=== PATIENT | female | born 1965 | race Caucasian/White ===

== ENCOUNTER 2020-10-23 08:06 | Outpatient (REF) | payer OTHER, SELFPAY ==
[2020-10-23 09:11] LABS: MANUAL DIFF FLAG NO
[2020-10-23 09:15] LABS: Basophils Percent Auto 0.5 % (0-2); Eosinophils Absolute Auto 0.2 X10*3/uL (0.0-0.4); Eosinophils Percent Auto 2.7 % (0-4); Hematocrit 40.8 % (37-47); Hemoglobin 13.1 g/dl (12.0-16.0); Imm Gran Abs Auto 0.02 X10*3/uL (0.00-0.03); Imm Gran Pct Auto 0.4 % (0.0-0.4); Lymphocytes Absolute Auto 1.8 X10*3/uL (1.2-4.9); Lymphocytes Percent Auto 31.9 % (20-40); Mean Corpuscular HGB Conc 32.1 g/dl (31.0-35.0); Mean Corpuscular Hemoglobin 28.9 pg (27.0-33.0); Mean Corpuscular Volume 90.1 fL (80-98); Mean Platelet Volume 9.4 fL (9.4-12.3); Monocytes Absolute Auto 0.5 X10*3/uL (0.1-1.2); Neutrophils Absolute Auto 3.2 X10*3/uL (2.0-8.3); Neutrophils Percent Auto 56.5 % (45-73); Platelet Count 261 X10*3/uL (160-400); Red Blood Count 4.53 X10*6/uL (4.20-5.50); Red Cell Distribution Width 12.6 % (11.0-16.0); White Blood Count 5.6 X10*3/uL (4.8-10.8)
[2020-10-23 09:41] LABS: Alanine Aminotransferase 38 U/L (0-31); Albumin Level 4.2 g/dL (3.5-5.0); Alkaline Phosphatase 71 U/L (39-117); Anion Gap 10 (12-20); Aspartate Amino Transferase 23 U/L (5-31); Bilirubin Direct 0.2 mg/dL (0.0-0.5); Bilirubin Total 0.7 mg/dL (0.0-1.0); Blood Urea Nitrogen 16 mg/dL (9-16); Calcium 9.1 mg/dL (8.4-10.2); Carbon Dioxide 29 mmol/L (22-29); Chloride 105 mmol/L (96-108); Cholesterol 223 mg/dL; Estimated Glomerular Filt Rate > 60; Glucose Fasting 106 mg/dL (60-99); HDL Cholesterol 58 mg/dL; LDL Cholesterol Calculated 120 mg/dl; Potassium 3.9 mmol/l (3.3-5.1); Sodium 140 mmol/L (135-145); Total Protein 6.9 g/dL (6.5-8.0); Triglycerides 225 mg/dL
[2020-10-23 10:07] LABS: Thyroid Stimulating Hormone 1.91 uIU/mL (0.32-4.0); Vitamin D 25-OH Total 34.3 ng/mL (>30)
[2020-10-23 10:37] LABS: T4 Thyroxine 5.3 ug/dL (4.5-12.0)
[2020-10-23 10:54] LABS: Vitamin B12 324 pg/mL (200-900)
== END 2020-10-23 08:07 | disposition home or self-care (01) ==
LOC: HO.LAB 08:06
PROVIDERS: PCP Internal Medicine; Visit Provider Internal Medicine
DX: E78.00 Pure hypercholesterolemia, unspecified (principal); R73.01 Impaired fasting glucose
CPT/HCPCS: 36415; 80053; 80061; 80076; 82248; 82306; 82607; 82746; 84436; 84443; 85025

== ENCOUNTER 2020-11-02 07:58 | Outpatient (REF) | payer OTHER, SELFPAY ==
--- NOTE | 2020-11-02 08:01 | MM_ITS ---
EXAMINATION: MM SCREENING DIGITAL BREAST TOMOSYNTHESIS, BILATERAL CLINICAL INFORMATION: Screening. Asymptomatic. The lifetime risk of breast cancer based on the Tyrer-Cuzick Model is 10%. COMPARISON: Mammography: 07/05/2019, 06/27/2018, 04/24/2017 TECHNIQUE: Digital breast tomosynthesis is performed in both the craniocaudal and mediolateral oblique views along with computer-aided detection (CAD). Synthesized 2D images are generated from the tomosynthesis. Additional right CC view is provided. FINDINGS: There are scattered areas of fibroglandular density (ACR BI-RADS breast composition Category b). There are no significant masses, abnormal calcifications, or other abnormalities. There is a biopsy clip marker left breast 12:30 o'clock position mid depth with some scattered stable round calcifications in this vicinity. No significant changes. MM/MM tomosynthesis screening BI IMPRESSION: No significant changes from prior studies. ASSESSMENT: BI-RADS 2: Benign RECOMMENDATION: Routine annual mammography screening. This patient's information was entered into a reminder system with a target due date for their next mammogram.
== END 2020-11-02 07:59 | disposition home or self-care (01) ==
LOC: HO.MAMMO 07:58
PROVIDERS: PCP Internal Medicine; Visit Provider Internal Medicine
DX: Z12.31 Encounter for screening mammogram for malignant neoplasm of breast (principal)
CPT/HCPCS: 77063; 77067

== ENCOUNTER → 2020-11-14 11:01 | Outpatient (REF) | payer OTHER, SELFPAY | LOC: HO.SL 11:01 | PROVIDERS: Visit Provider Otolaryngology | DX: R06.83 Snoring (principal); G47.10 Hypersomnia, unspecified | CPT/HCPCS: 95806 ==

== ENCOUNTER → 2020-12-04 14:50 | Outpatient (BNVA) | payer OTHER, SELFPAY | PROVIDERS: PCP Internal Medicine; Visit Provider Advanced Practice Midwife ==

== ENCOUNTER 2021-12-06 08:57 | Outpatient (REF) | payer OTHER, SELFPAY ==
--- NOTE | ~2021-12-06 | MM_ITS ---
EXAMINATION: MM SCREENING DIGITAL BREAST TOMOSYNTHESIS, BILATERAL CLINICAL INFORMATION: Screening. Asymptomatic. The lifetime risk of breast cancer based on the Tyrer-Cuzick Model is 11%. COMPARISON: Mammography: 11/02/2020, 07/05/2019, 06/27/2018 TECHNIQUE: Digital breast tomosynthesis is performed in both the craniocaudal and mediolateral oblique views along with computer-aided detection (CAD). Synthesized 2D images are generated from the tomosynthesis. Additional right CC view is provided. FINDINGS: There are scattered areas of fibroglandular density (ACR BI-RADS breast composition Category b). There are no significant masses, abnormal calcifications, or other abnormalities. There is biopsy clip marker again noted left breast mid 12:30 o'clock position. Parenchymal pattern is similar to prior studies. MM/MM tomosynthesis screening BI IMPRESSION: No mammographic evidence of malignancy. ASSESSMENT: BI-RADS 1: Negative RECOMMENDATION: Routine annual mammography screening. This patient's information was entered into a reminder system with a target due date for their next mammogram.
== END 2021-12-06 08:58 | disposition home or self-care (01) ==
LOC: HO.MAMMO 08:57
PROVIDERS: PCP Internal Medicine; Visit Provider Internal Medicine
DX: Z12.31 Encounter for screening mammogram for malignant neoplasm of breast (principal)
CPT/HCPCS: 77063; 77067

== ENCOUNTER → 2021-12-25 08:30 | Outpatient (BNVA) | payer OTHER, SELFPAY | PROVIDERS: PCP Internal Medicine; Visit Provider Advanced Practice Midwife ==

== ENCOUNTER 2022-01-20 07:15 | Outpatient (REF) | payer OTHER, SELFPAY ==
[2022-01-20 07:28] LABS: MANUAL DIFF FLAG NO
[2022-01-20 08:01] LABS: Basophils Percent Auto 0.5 % (0-2); Eosinophils Absolute Auto 0.2 X10*3/uL (0.0-0.4); Eosinophils Percent Auto 2.8 % (0-4); Hematocrit 41.6 % (37.0-47.0); Hemoglobin 13.5 g/dl (12.0-16.0); Imm Gran Abs Auto 0.01 X10*3/uL (0.00-0.03); Imm Gran Pct Auto 0.2 % (0.0-0.4); Lymphocytes Absolute Auto 2.3 X10*3/uL (1.2-4.9); Lymphocytes Percent Auto 38.4 % (20-40); Mean Corpuscular HGB Conc 32.5 g/dl (31.0-35.0); Mean Corpuscular Hemoglobin 29.1 pg (27.0-33.0); Mean Corpuscular Volume 89.7 fL (80.0-98.0); Mean Platelet Volume 9.6 fL (9.4-12.3); Monocytes Absolute Auto 0.5 X10*3/uL (0.1-1.2); Monocytes Percent Auto 8.9 % (2-11); Neutrophils Percent Auto 49.2 % (45-73); Platelet Count 244 X10*3/uL (160-400); Red Blood Count 4.64 X10*6/uL (4.20-5.50); Red Cell Distribution Width 13.2 % (11.0-16.0); White Blood Count 6.1 X10*3/uL (4.8-10.8)
[2022-01-20 08:27] LABS: Alanine Aminotransferase 33 U/L (0-31); Albumin Level 4.3 g/dL (3.5-5.0); Alkaline Phosphatase 74 U/L (39-117); Anion Gap 14 (12-20); Aspartate Amino Transferase 21 U/L (5-31); Bilirubin Total 0.4 mg/dL (0.0-1.0); Blood Urea Nitrogen 19 mg/dL (9-16); Calcium 9.8 mg/dL (8.4-10.2); Carbon Dioxide 27 mmol/L (22-29); Chloride 107 mmol/L (96-108); Cholesterol 190 mg/dL; Estimated Glomerular Filt Rate > 60; Glucose Random 101 mg/dL (60-115); HDL Cholesterol 53 mg/dL; LDL Cholesterol Calculated 112 mg/dl; Potassium 4.4 mmol/L (3.3-5.1); Sodium 144 mmol/L (135-145); Triglycerides 126 mg/dL
[2022-01-20 08:38] LABS: Estimated Average Glucose 105 mg/dL; Hemoglobin A1c % 5.3 %
[2022-01-20 09:08] LABS: Free T4 (Free Thyroxine) 0.85 ng/dL (0.71-1.85); Thyroid Stimulating Hormone 2.21 uIU/mL (0.32-4.0)
[2022-01-20 09:22] LABS: Folate 7.9 ng/mL (> or = 4.0); Vitamin B12 345 pg/mL (200-900)
[2022-01-22 14:28] LABS: Vitamin D 25-OH Total 32.3 ng/mL (>30)
== END 2022-01-20 07:16 | disposition home or self-care (01) ==
LOC: HO.LAB 07:15
PROVIDERS: PCP Internal Medicine; Visit Provider Internal Medicine
DX: R73.02 Impaired glucose tolerance (oral) (principal); E78.00 Pure hypercholesterolemia, unspecified
CPT/HCPCS: 36415; 80053; 80061; 82306; 82607; 82746; 83036; 84439; 84443; 85025

== ENCOUNTER → 2022-02-25 13:56 | Outpatient (BNVA) | payer OTHER, SELFPAY | PROVIDERS: PCP Internal Medicine; Referring Provider Internal Medicine; Visit Provider Physician Assistant | DX: Z13.89 Encounter for screening for other disorder (principal) ==

== ENCOUNTER 2022-12-12 09:00 | Outpatient (REF) | payer OTHER, SELFPAY ==
--- NOTE | ~2022-12-12 | MM_ITS ---
EXAMINATION: MM SCREENING DIGITAL BREAST TOMOSYNTHESIS, BILATERAL CLINICAL INFORMATION: Screening. Asymptomatic. The lifetime risk of breast cancer based on the Tyrer-Cuzick Model is 9%. COMPARISON: Mammography: 12/06/2021, 11/02/2020, 07/05/2019, 06/27/2018 TECHNIQUE: Digital breast tomosynthesis is performed in both the craniocaudal and mediolateral oblique views along with computer-aided detection (CAD). Synthesized 2D images are generated from the tomosynthesis. FINDINGS: There are scattered areas of fibroglandular density (ACR BI-RADS breast composition Category b). There are no significant masses, abnormal calcifications, or other abnormalities. Parenchymal pattern is similar to prior studies. Again, there is biopsy clip marker 12:30 left breast. Right breast has circumscribed nodule likely intramammary node under 1 cm anterior upper outer quadrant similar to prior exams. No architectural abnormality. The axilla and skin contours are unremarkable. No significant changes. MM/MM tomosynthesis screening BI IMPRESSION: No mammographic evidence of malignancy. ASSESSMENT: BI-RADS 2: Benign RECOMMENDATION: Routine annual mammography screening. This patient's information was entered into a reminder system with a target due date for their next mammogram.
== END 2022-12-12 09:01 | disposition home or self-care (01) ==
LOC: HO.MAMMO 09:00
PROVIDERS: PCP Internal Medicine; Visit Provider Internal Medicine
DX: Z12.31 Encounter for screening mammogram for malignant neoplasm of breast (principal)
CPT/HCPCS: 77063; 77067

== ENCOUNTER 2023-01-25 07:09 | Outpatient (REF) | payer OTHER, SELFPAY ==
[2023-01-25 07:23] LABS: MANUAL DIFF FLAG NO
[2023-01-25 08:00] LABS: Appearance Urine Clear; Color Urine Yellow; Glucose Urine UA Negative (Negative); Leukocyte Esterase Urine Negative (Negative); Nitrite Urine Negative (Negative); Specific Gravity - Urine 1.025 (1.005-1.025); Urine Blood Negative (Negative); Urine Ketones Negative (Negative); Urine Protein Negative (Neg-Trace)
[2023-01-25 08:03] LABS: Basophils Absolute Auto 0.1 X10*3/uL (0.0-0.2); Basophils Percent Auto 0.8 % (0-2); Eosinophils Absolute Auto 0.2 X10*3/uL (0.0-0.4); Eosinophils Percent Auto 2.4 % (0-4); Hematocrit 42.3 % (37.0-47.0); Hemoglobin 13.7 g/dl (12.0-16.0); Imm Gran Abs Auto 0.02 X10*3/uL (0.00-0.03); Imm Gran Pct Auto 0.3 % (0.0-0.4); Lymphocytes Absolute Auto 3.2 X10*3/uL (1.2-4.9); Lymphocytes Percent Auto 42.6 % (20-40); Mean Corpuscular HGB Conc 32.4 g/dl (31.0-35.0); Mean Corpuscular Hemoglobin 29.3 pg (27.0-33.0); Mean Corpuscular Volume 90.4 fL (80.0-98.0); Mean Platelet Volume 9.6 fL (9.4-12.3); Monocytes Absolute Auto 0.6 X10*3/uL (0.1-1.2); Monocytes Percent Auto 7.4 % (2-11); Neutrophils Absolute Auto 3.5 x10*3/uL (2.0-8.3); Neutrophils Percent Auto 46.5 % (45-73); Platelet Count 264 X10*3/uL (160-400); Red Blood Count 4.68 X10*6/uL (4.20-5.50); Red Cell Distribution Width 12.5 % (11.0-16.0); White Blood Count 7.4 X10*3/uL (4.8-10.8)
[2023-01-25 08:04] LABS: Bacteria Urine None Seen (None Seen); Hyaline Casts Urine 0-2 /LPF (0-2); RBC Urine 0-2 /HPF (0-2); Squamous Epithelial Cell Urine 0-2 /HPF (0-2); WBC Urine 0-5 /HPF (0-5)
[2023-01-25 08:13] LABS: Estimated Average Glucose 105 mg/dL; Hemoglobin A1c % 5.3 %
[2023-01-25 08:46] LABS: Alanine Aminotransferase 28 U/L (0-31); Albumin Level 4.2 g/dL (3.5-5.0); Alkaline Phosphatase 89 U/L (39-117); Anion Gap 11 (12-20); Aspartate Amino Transferase 17 U/L (5-31); Bilirubin Total 0.5 mg/dL (0.0-1.0); Blood Urea Nitrogen 20 mg/dL (9-16); Calcium 9.3 mg/dL (8.4-10.2); Carbon Dioxide 28 mmol/L (22-29); Chloride 106 mmol/L (96-108); Cholesterol 157 mg/dL; Estimated Glomerular Filt Rate > 60; Glucose Random 97 mg/dL (60-115); HDL Cholesterol 53 mg/dL; LDL Cholesterol Calculated 77 mg/dl; Potassium 4.3 mmol/L (3.3-5.1); Sodium 141 mmol/L (135-145); Total Protein 6.7 g/dL (6.5-8.0); Triglycerides 136 mg/dL
[2023-01-25 09:07] LABS: Folate 5.5 ng/mL (> or = 4.0); Free T4 (Free Thyroxine) 0.83 ng/dL (0.71-1.85); Thyroid Stimulating Hormone 2.44 uIU/mL (0.32-4.0); Vitamin B12 392 pg/mL (200-900); Vitamin D 25-OH Total 40.1 ng/mL (>30)
== END 2023-01-25 07:10 | disposition home or self-care (01) ==
LOC: HO.LAB 07:09
PROVIDERS: PCP Internal Medicine; Visit Provider Internal Medicine
DX: E78.00 Pure hypercholesterolemia, unspecified (principal); R73.02 Impaired glucose tolerance (oral); E55.9 Vitamin D deficiency, unspecified
CPT/HCPCS: 36415; 80053; 80061; 81001; 82306; 82607; 82746; 83036; 84439; 84443; 85025

== ENCOUNTER 2023-03-09 15:11 | Outpatient (REF) | payer OTHER, SELFPAY ==
[2023-03-12 04:18] LABS: HPV mRNA E6/E7 rflx Not Detected (Not Detected)
== END 2023-03-09 15:12 | disposition home or self-care (01) ==
LOC: HO.LNP 15:11
PROVIDERS: PCP Internal Medicine; Visit Provider Advanced Practice Midwife
DX: Z01.419 Encounter for gynecological examination (general) (routine) without abnormal findings (principal); Z11.51 Encounter for screening for human papillomavirus (HPV)
CPT/HCPCS: 87624; 88142

== ENCOUNTER → 2023-03-11 14:46 | Outpatient (BNVA) | payer OTHER, SELFPAY | PROVIDERS: PCP Internal Medicine; Visit Provider Physician Assistant ==

== ENCOUNTER 2023-04-22 06:24 | Day surgery (SDC) | payer OTHER, SELFPAY ==
--- NOTE | 2023-04-21 10:40 | P.CONAN_ITS ---
HPI - Anesthesia Eval Consult details Narrative: 57yo F for Colonoscopy PMF Active Problems Active Problems: All Active Problems (Updated 03/16/23 @ 12:21 by Leonor Fofana CNM) Family history of colon cancer in father (Acute) Colon cancer screening (Acute) Fecal urgency (Acute) Impacted cerumen of right ear (Acute) Recurrent major depression (Acute) Diarrhea (Acute) Mild obstructive sleep apnea (Acute) Encounter for annual routine gynecological examination (Acute) Rash (Acute) Low back pain radiating to lower extremity (Acute) Internal nasal lesion (Acute) Obesity (BMI 30-39.9) (Acute) Snoring (Acute) Cervical cancer screening (Acute) Impaired glucose tolerance (Acute) Annual physical exam (Acute) Hypercholesterolemia (Acute) Anxiety and depression (Acute) Past Medical History Medical History Abnormal Pap smear of cervix Anxiety and depression Hypercholesterolemia Liver cyst Migraine Obesity (BMI 30-39.9) Family History Family History Father Colon cancer Mother Hypertension Dementia Maternal Aunt Myocardial infarction Paternal Uncle Myocardial infarction Surgical History Surgical History History of appendectomy History of D&C History of wisdom tooth extraction Hx of colonoscopy Malleolar fracture Social History Social History Housing: House Alcohol intake: current Alcohol intake frequency: a few times a week Patient Tobacco Use Status: Former Tobacco user Quit Date: 1986 Tobacco use type: Cigarette Years Smoked: 1985 stopped e-Cigarette/Vaping Use: Never Used Second Hand Smoke Exposure: No Use of substances other than those prescribed or required for medical reasons: No Are you DNR?: No Advance Directives: No Advance Directives Information Provided: Yes service: No Current occupational status: employed 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 Sexual orientation: Straight/Heterosexual Gender identity: Female Cognitive needs: No Hearing needs: No Vision needs: No Meds Allergies Allergy/AdvReac Type Severity Reaction Status Date / Time atorvastatin [From Lipitor] Allergy Unknown Unknown Verified 04/22/23 06:35 simvastatin [SIMVASTATIN] Allergy Unknown RASH Verified 04/22/23 06:35 Home Medications Medication Instructions Recorded Confirmed Last Taken Type calcium carbonate 600 mg-vitamin 1 tab PO DAILY 10/28/20 04/20/23 Unknown History D3 5 mcg (200 unit) tablet (Calcium 600 + D(3)) Exam Exam Date and Time: April 21, 2023 1040 Pertinent Lab Results Pertinent Lab Results: Laboratory Tests 01/25/23 01/25/23 07:22 07:22 WBC 7.4 Hgb 13.7 Hct 42.3 Plt Count 264 Sodium 141 Potassium 4.3 Chloride 106 Carbon Dioxide 28 BUN 20 H Creatinine 0.82 Assessment and Plan Assessment Anesthesia Assessment: Chart Reviewed
--- NOTE | 2023-04-22 06:09 | MHC.SHP ---
Pre-Procedural Eval Section A Date of Service: 04/22/23 Section B Chief Complaint: screening,hx of malignant neoplasm Details of Present Illness: father CRC Relevant Family History (Specify if Yes): Yes Relevant Social History: None Present Medications: see Short Stay Collaborative assessment Medical History: Significant History (Abnormal Pap smear of cervix Anxiety and depression Hypercholesterolemia Liver cyst Migraine Obesity (BMI 30-39.9)) History of Previous Operations: Relevant previous surgery/procedure and date(s) (History of appendectomy History of D&C History of wisdom tooth extraction Malleolar fracture) Allergies: Allergies Allergy/AdvReac Type Severity Reaction Status Date / Time atorvastatin [From Lipitor] Allergy Unknown Unknown Verified 03/11/23 14:47 simvastatin [SIMVASTATIN] Allergy Unknown RASH Verified 03/11/23 14:47 Review of Systems Sugical H&P ROS: Negative: Constitution, Cardiovascular, Respiratory, Neurological, Psychiatric, Hem-Onc, Allergic/Immunologic, Gastrointestinal, Genitourinary, Musculoskeletal, Integumentary, Endocrine and Eyes/Ears/Nose/Throat Exam Surgical H&P Exam: Normal: HEENT, Normal: Heart, Normal: Lungs, Normal: Extremities, Normal: Abdomen, Normal: Skin and Normal: Neurological Plan Diagnosis/Plan: Unchanged I have reviewed the history and physical and performed a pertinent physical examination on my patient. No changes have occurred unless specified. Time Spent With Patient Time: Total time managing care of this patient today ____ minutes.
[2023-04-22 06:37] VITALS: BMI 28.7
[2023-04-22 06:43] VITALS: BP 124/77; PULSE 51; RESP 15; TEMP 36.4; O2SAT 95
[2023-04-22] MEDS: Lactated Ringers 1,000 ML 100 ML IVCONT (06:56)
--- NOTE | 2023-04-22 08:03 | HO.ANESPROP2 ---
[facility] Active Problems Active Problems: All Active Problems (Updated 03/16/23 @ 12:21 by Leonor Fofana CNM) Annual physical exam (Acute) Impaired glucose tolerance (Acute) Cervical cancer screening (Acute) Snoring (Acute) Internal nasal lesion (Acute) Low back pain radiating to lower extremity (Acute) Rash (Acute) Encounter for annual routine gynecological examination (Acute) Mild obstructive sleep apnea (Acute) Diarrhea (Acute) Recurrent major depression (Acute) Impacted cerumen of right ear (Acute) Fecal urgency (Acute) Colon cancer screening (Acute) Family history of colon cancer in father (Acute) Obesity (BMI 30-39.9) (Acute) Hypercholesterolemia (Acute) Anxiety and depression (Acute) Past Medical History Medical History Abnormal Pap smear of cervix Anxiety and depression Hypercholesterolemia Liver cyst Migraine Obesity (BMI 30-39.9) Family History Family History Father Colon cancer Mother Hypertension Dementia Maternal Aunt Myocardial infarction Paternal Uncle Myocardial infarction Family history of problems with anesthesia: No Surgical History Surgical History History of appendectomy History of D&C History of wisdom tooth extraction Hx of colonoscopy Malleolar fracture History of Problems with Anesthesia: No Social History Social History Housing: House Alcohol intake: current Alcohol intake frequency: a few times a week Patient Tobacco Use Status: Former Tobacco user Quit Date: 1986 Tobacco use type: Cigarette Years Smoked: 1985 stopped e-Cigarette/Vaping Use: Never Used Second Hand Smoke Exposure: No Use of substances other than those prescribed or required for medical reasons: No Are you DNR?: No Advance Directives: No Advance Directives Information Provided: Yes service: No Current occupational status: employed 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 Sexual orientation: Straight/Heterosexual Gender identity: Female Cognitive needs: No Hearing needs: No Vision needs: No Meds Allergies Allergy/AdvReac Type Severity Reaction Status Date / Time atorvastatin [From Lipitor] Allergy Unknown Unknown Verified 04/22/23 06:35 simvastatin [SIMVASTATIN] Allergy Unknown RASH Verified 04/22/23 06:35 Active Medications: Current Medications Lactated Ringer's (Lr) 1,000 mls @ 100 mls/hr IVCONT .Q10H AMARIS Last Admin: 04/22/23 06:56 Dose: 100 mls/hr Home Medications Medication Instructions Recorded Confirmed Last Taken Type calcium carbonate 600 mg-vitamin 1 tab PO DAILY 10/28/20 04/20/23 Unknown History D3 5 mcg (200 unit) tablet (Calcium 600 + D(3)) Exam Exam Date and Time: April 22, 2023 0803 Height,Weight and Vital Signs: Height 5 ft 6 in Weight 80.739 kg Last Vital Signs Temp 97.6 F 04/22/23 06:43 Pulse 51 04/22/23 06:43 Resp 15 04/22/23 06:43 BP 124/77 04/22/23 06:43 Pulse Ox 95 04/22/23 06:43 O2 Del Method Room Air 04/22/23 06:43 Airway Mallampati Class: II TM Dist: >3cm Neck ROM: Full Heart: RRR Lungs: CTA Assessment and Plan Final Anesthetic Review Family History of Problems with Anesthesia: No History of Problems with Anesthesia: No NPO: Yes ASA Class: II Final Preanesthetic Review: Consent Obtained/Reviewed Patient Risk: Low Procedure Risk: Low Anesthetic Plan Anesthetic Plan: MAC: Disposition: Standard PACU
--- NOTE | 2023-04-22 08:16 | W.PM.OPN ---
Operative Note Operative Note Date of Service: 04/22/23 Narrative: Operative Information Procedure Description: Colonoscopy Indication: screening, FH of cRC Anesthesia: MAC COLONOSCOPY Instrument: Olympus variable stiffness pediatric scope 190L Colonoscopy Monitoring: Vital signs and clinical assessment, continuous EKG monitoring, Pulse oximetry, Carbon Dioxide monitoring and blood pressure monitoring were done throughout the procedure. Colon withdrawal time was 10 minutes. Procedure: The patient was placed in the left lateral decubitis position and pre-procedure medications were administered. After a digital rectal examination of the ano-rectum, the video colonoscope was inserted into the rectum and advanced through the colon to the cecum/TI. The colonoscope was slowly withdrawn in a retrograde panoramic fashion and the colon mucosa was carefully examined including a retroflexed view of the rectum. Findings and interventions are described below. Procedure Difficulty: moderate, pressure applied due to tortuous colon Findings: Terminal Ileum-not intubated Cecum:normal Ascending Colon: normal Transverse Colon -normal Descending Colon:normal Sigmoid Colon: mild diverticulosis Rectum: Retroflexion with small internal hemorrhoids, grade I Anorectum - normal Colon preparation: [place] Bowel Preparation Scale Right colon; 2 Transverse colon: 3 Left colon; 3 (0 = Unprepared colon segment with mucosa not seen due to solid stool that cannot be cleared. 1 = Portion of mucosa of the colon segment seen, but other areas of the colon segment not well seen due to staining, residual stool and/or opaque liquid. 2 = Minor amount of residual staining, small fragments of stool and/or opaque liquid, but mucosa of colon segment seen well. 3 = Entire mucosa of colon segment seen well with no residual staining, small fragments of stool or opaque liquid) Impression and Post Procedure Diagnosis: internal hemorrhoids diverticulosis Plan: High fiber diet leaflet Avoid straining at stool, epsom salts and sitz bath, anusol supps or cream Repeat Colonoscopy in 5 years or earlier if clinically indicated Above findings were reviewed with the patient and relevant handouts were provided if indicated.
[2023-04-22 08:22] VITALS: BP 103/58; PULSE 63; RESP 16; TEMP 36.6; O2SAT 94
[2023-04-22 08:37] VITALS: BP 101/60; PULSE 62; RESP 16; O2SAT 96
--- NOTE | 2023-04-22 08:49 | HO.POSTANES ---
Post Anesthesia Evaluation Post Anesthesia Evaluation Date of Service: 04/22/23 Vital Signs: Vital Signs Temp Pulse Resp BP Pulse Ox O2 Del Method 04/22/23 08:37 62 16 101/60 96 Room Air 04/22/23 08:22 98 F 63 16 103/58 L 94 Room Air 04/22/23 06:43 97.6 F 51 15 124/77 95 Room Air Anesthesia: Monitored Mental Status: Awake Pain Control: Satisfactory Nausea/Vomiting: None Hydration: Adequate Anesthesia-Related Issues: No Anes. Related Issues
[2023-04-22 08:52] VITALS: BP 113/68; PULSE 52; RESP 16; TEMP 36.8; O2SAT 98
== END 2023-04-22 09:33 | disposition home or self-care (01) ==
PROVIDERS: PCP Internal Medicine; Visit Provider Internal Medicine Gastroenterology
PROC: 0DJD8ZZ Inspection of Lower Intestinal Tract, Via Natural or Artificial Opening Endoscopic (ICD-10-PCS; CPT 45378; principal; 2023-04-22 07:30)
DX: Z12.11 Encounter for screening for malignant neoplasm of colon (principal); Z80.0 Family history of malignant neoplasm of digestive organs; K57.30 Diverticulosis of large intestine without perforation or abscess without bleeding; K64.0 First degree hemorrhoids; K76.89 Other specified diseases of liver; E78.00 Pure hypercholesterolemia, unspecified; F41.8 Other specified anxiety disorders; G43.909 Migraine, unspecified, not intractable, without status migrainosus; E66.9 Obesity, unspecified; Z79.899 Other long term (current) drug therapy; Z88.8 Allergy status to other drugs, medicaments and biological substances; Z87.891 Personal history of nicotine dependence
CPT/HCPCS: 45378

== ENCOUNTER 2023-05-13 07:58 | Outpatient (AMB) | payer OTHER, SELFPAY ==
--- NOTE | 2023-05-13 08:14 | A.OFFVIS_ITS ---
Intake Vital Signs 05/13/23 08:15 Height 5 ft 6 in Weight 182 lb 1.629 oz BMI 29.4 BP 128/85 Blood Pressure Location Lt brachial Position Sitting Pulse 58 Intake Visit Reasons: S/P [place]: Dr. 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 Accompanied by: Self / Same As Patient Allergies atorvastatin [From Lipitor] Allergy (Unknown, Verified 05/13/23 08:14) Unknown simvastatin [SIMVASTATIN] Allergy (Unknown, Verified 05/13/23 08:14) RASH HPI HPI Comments History of Present Illness Details A 57 y/o female follows after colonoscopy-for family history colon cancer- father in his 40s She tolerated well- she was very happy- with her process No /GI complaints- Vacation next week-excited- [facility] Medical History Abnormal Pap smear of cervix Anxiety and depression Hypercholesterolemia Liver cyst Migraine Obesity (BMI 30-39.9) Surgical History History of appendectomy History of D&C History of wisdom tooth extraction Hx of colonoscopy Malleolar fracture Family History Father Colon cancer Mother Hypertension Dementia Maternal Aunt Myocardial infarction Paternal Uncle Myocardial infarction Social History Housing: House Alcohol intake: current Alcohol intake frequency: a few times a week Patient Tobacco Use Status: Former Tobacco user Quit Date: 1986 Tobacco use type: Cigarette Years Smoked: 1985 stopped e-Cigarette/Vaping Use: Never Used Second Hand Smoke Exposure: No service: No Current occupational status: employed 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 Sexual orientation: Straight/Heterosexual Gender identity: Female Cognitive needs: No Hearing needs: No Vision needs: No Review of Systems Const All systems reviewed & are unremarkable except as noted in HPI and below Physical Exam Vital Signs: Last Vital Signs Pulse 58 05/13/23 08:15 BP 128/85 05/13/23 08:15 BMI result Body Mass Index 29.4 Results Reviewed Results Reviewed: Impression and Post Procedure Diagnosis: internal hemorrhoids diverticulosis Plan: High fiber diet leaflet Avoid straining at stool, epsom salts and sitz bath, anusol supps or cream Repeat Colonoscopy in 5 years or earlier if clinically indicated Assessment & Plan Assessment & Plan (1) Family history of colon cancer in father: Comment: father 40s Code(s): Z80.0 - Family history of malignant neoplasm of digestive organs Plan: repeat colonoscopy 5 years (2) Hemorrhoids: Code(s): K64.9 - Unspecified hemorrhoids Plan: HFD avoid strain Patient Instructions: A very pleasant 57 y/o female Reviewed procedure report HFD avoid strain Repeat colonoscopy 5 years Coding Level of Care Code Est Pt Level 3 (06981) Diagnoses Family history of colon cancer in father Z80.0 Hemorrhoids K64.9 Time Spent (min) 20
[2023-05-13 08:15] VITALS: BP 128/85; PULSE 58; BMI 29.4
== END 2023-05-13 10:02 | disposition home or self-care (01) ==
PROVIDERS: PCP Internal Medicine; Visit Provider Physician Assistant
DX: Z80.0 Family history of malignant neoplasm of digestive organs (principal); K64.9 Unspecified hemorrhoids
CPT/HCPCS: 99213

== ENCOUNTER → 2023-05-13 07:58 | Outpatient (BNVA) | payer OTHER, SELFPAY | PROVIDERS: PCP Internal Medicine; Visit Provider Physician Assistant ==

== ENCOUNTER 2023-12-18 08:51 | Outpatient (REF) | payer OTHER, SELFPAY ==
--- NOTE | ~2023-12-18 | MM_ITS ---
EXAMINATION: MM SCREENING DIGITAL BREAST TOMOSYNTHESIS, BILATERAL CLINICAL INFORMATION: Screening. Asymptomatic. COMPARISON: Mammography: This study is compared with prior exams dating back to 2019. TECHNIQUE: Digital breast tomosynthesis is performed in both the craniocaudal and mediolateral oblique views along with computer-aided detection (CAD). Synthesized 2D images are generated from the tomosynthesis. FINDINGS: There are scattered areas of fibroglandular density (ACR BI-RADS breast composition Category b). There are no significant masses, abnormal calcifications, or other abnormalities. There is a tissue marker present in the upper outer quadrant of the left breast from prior benign percutaneous biopsy. MM/MM tomosynthesis screening BI IMPRESSION: No mammographic evidence of malignancy. ASSESSMENT: BI-RADS BI-RADS 2 - Benign Findings RECOMMENDATION: Routine annual mammography screening. 1 year F/U This examination should not preclude the clinical evaluation of a suspicious palpable abnormality. This patient's information was entered into a reminder system with a target due date for their next mammogram.
== END 2023-12-18 08:52 | disposition home or self-care (01) ==
LOC: HO.MAMMO 08:51
PROVIDERS: PCP Internal Medicine; Visit Provider Internal Medicine
DX: Z12.31 Encounter for screening mammogram for malignant neoplasm of breast (principal)
CPT/HCPCS: 77063; 77067

== ENCOUNTER → 2023-12-18 09:00 | Outpatient (BNV) | payer OTHER, SELFPAY | PROVIDERS: PCP Internal Medicine; Visit Provider Radiology Diagnostic Radiology | DX: Z12.31 Encounter for screening mammogram for malignant neoplasm of breast (principal) | CPT/HCPCS: 77063; 77067 ==

== ENCOUNTER 2024-02-28 07:24 | Outpatient (REF) | payer OTHER, SELFPAY ==
[2024-02-28 07:38] LABS: MANUAL DIFF FLAG NO
[2024-02-28 08:05] LABS: Basophils Percent Auto 0.7 % (0-2); Eosinophils Absolute Auto 0.2 X10*3/uL (0.0-0.4); Eosinophils Percent Auto 2.7 % (0-4); Hemoglobin 13.3 g/dl (12.0-16.0); Imm Gran Abs Auto 0.02 X10*3/uL (0.00-0.03); Imm Gran Pct Auto 0.3 % (0.0-0.4); Lymphocytes Absolute Auto 2.1 X10*3/uL (1.2-4.9); Lymphocytes Percent Auto 36.5 % (20-40); Mean Corpuscular HGB Conc 33.3 g/dl (31.0-35.0); Mean Corpuscular Hemoglobin 29.9 pg (27.0-33.0); Mean Corpuscular Volume 89.9 fL (80.0-98.0); Mean Platelet Volume 9.3 fL (9.4-12.3); Monocytes Absolute Auto 0.5 X10*3/uL (0.1-1.2); Monocytes Percent Auto 7.7 % (2-11); Neutrophils Absolute Auto 3.1 x10*3/uL (2.0-8.3); Neutrophils Percent Auto 52.1 % (45-73); Platelet Count 262 X10*3/uL (160-400); Red Blood Count 4.45 X10*6/uL (4.20-5.50); Red Cell Distribution Width 12.8 % (11.0-16.0); White Blood Count 5.9 X10*3/uL (4.8-10.8)
[2024-02-28 09:18] LABS: Estimated Average Glucose 108 mg/dL; Hemoglobin A1c % 5.4 % (<6.0)
[2024-02-28 10:21] LABS: Alanine Aminotransferase 27 U/L (0-31); Alkaline Phosphatase 78 U/L (39-117); Anion Gap 15 (12-20); Aspartate Amino Transferase 21 U/L (5-31); Bilirubin Total 0.5 mg/dL (0.0-1.0); Blood Urea Nitrogen 12 mg/dL (9-16); Calcium 9.3 mg/dL (8.4-10.2); Carbon Dioxide 26 mmol/L (22-29); Chloride 106 mmol/L (96-108); Cholesterol 166 mg/dL (<200); Estimated Glomerular Filt Rate > 60; Glucose Random 109 mg/dL (60-115); HDL Cholesterol 52 mg/dL (>40); LDL Cholesterol Calculated 85 mg/dL (<100); Potassium 4.2 mmol/L (3.3-5.1); Sodium 143 mmol/L (135-145); Total Protein 6.7 g/dL (6.5-8.0); Triglycerides 145 mg/dL (<150)
[2024-02-28 10:38] LABS: Folate 7.4 ng/mL (> or = 4.0); Free T4 (Free Thyroxine) 0.73 ng/dL (0.71-1.85); Thyroid Stimulating Hormone 2.46 uIU/mL (0.32-4.0); Vitamin B12 346 pg/mL (200-900); Vitamin D 25-OH Total 37.4 ng/mL (>30)
== END 2024-02-28 07:25 | disposition home or self-care (01) ==
LOC: HO.LAB 07:24
PROVIDERS: PCP Internal Medicine; Visit Provider Internal Medicine
DX: R73.02 Impaired glucose tolerance (oral) (principal); E78.00 Pure hypercholesterolemia, unspecified
CPT/HCPCS: 36415; 80053; 80061; 82306; 82607; 82746; 83036; 84439; 84443; 85025

== ENCOUNTER 2024-03-15 08:11 | Outpatient (AMB) | payer OTHER, SELFPAY ==
[2024-03-15 08:14] VITALS: BP 118/74; BMI 28.7
--- NOTE | 2024-03-15 08:14 | MHC.OFFVIS ---
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 She is doing well with no concerns. Attempting to eat a healthy diet with calcium and vitamin D and stays active with exercise-pickleball. Currently sexually active same long-term partner. Denies any vaginal dryness or irritation. STI testing offered; she declined. Last pap smear; 2022-[place], due in 2025. Last mammogram; 2023. Colonoscopy is UTD -2022. Denies any family history of breast or ovarian cancer. Family history of father with colon cancer. [facility] Medical History Abnormal Pap smear of cervix Obesity (BMI 30-39.9) Liver cyst Migraine Hypercholesterolemia Anxiety and depression Surgical History Hx of colonoscopy Malleolar fracture History of wisdom tooth extraction History of D&C History of appendectomy Family History Father Colon cancer Mother Hypertension Dementia Maternal Aunt Myocardial infarction Paternal Uncle Myocardial infarction Social History Housing: House Alcohol intake: current Alcohol intake frequency: a few times a week Patient Tobacco Use Status: Former Tobacco user Quit Date: 1986 Tobacco use type: Cigarette Years Smoked: 1985 stopped e-Cigarette/Vaping Use: Never Used Second Hand Smoke Exposure: No Patient : No service: No Current occupational status: employed 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 Sexual orientation: Straight/Heterosexual Gender identity: Female Cognitive needs: No Hearing needs: No Vision needs: No Female Reproductive History Menstrual Age of Menarche: 9 control method: none Total pregnancies: 5 Full term: 3 Number of Living Children: 3 Ab induced: 1 Ab spontaneous: 1 Date of last pap smear: 03/10/23 ([facility]US) History of abnormal pap smear: Yes Date of Mammogram: 12/18/23 Review of Systems Const All systems reviewed & are unremarkable except as noted in HPI and below Reports as per HPI Eyes Reports no additional complaints ENT Reports no additional complaints Card Reports no additional complaints Resp Reports no additional complaints GI Reports as per HPI and Reports no additional complaints Reports as per HPI Musc Reports no additional complaints Skin/Breast Reports as per HPI Neuro Reports no additional complaints Psych Reports no additional complaints Endo Reports no additional complaints Bryant/Lymph Reports no additional complaints Aller/Immun Reports no additional complaints Physical Exam Vital Signs: Last Vital Signs BP 118/74 03/15/24 08:14 BMI result Body Mass Index 28.7 Const General: cooperative, healthy appearing, no acute distress, well developed and alert Orientation/consciousness: patient oriented x3 HEENT Head: Yes normal to inspection Eyes General: appearance normal, both eyes and all related structures Neck Neck: Yes normal visual inspection Thyroid: Thyroid normal Chest Chest palpation & inspection: normal inspection of the chest and other (no puckering, dimpling, peau de orange, retraction, discharge, masses) Breast/axilla inspection: normal inspection of the breasts Breast/axilla palpation: normal palpation of the breasts Resp Effort & Inspection: normal respiratory effort GI Inspection: Yes normal to inspection Palpation (GI): Soft to palpation Rectal Exam - Female: deferred General: Yes bladder normal to palpation External Female Exam: normal external appearance and normal appearance of the urethra Speculum Exam - Vagina: normal appearance of the vagina, normal palpation and normal vaginal discharge Speculum Exam - Cervix: normal appearance of the cervix and normal palpation Bimanual exam- vagina & uterus: normal bimanual exam, normal palpation, uterine size normal, bladder normal to palpation, normal palpation and non-tender Bimanual Exam- Adnexa, other: no masses Skin General skin exam: no rashes or lesions noted Rashes: no rashes Neuro General: patient oriented x3 Cognition (Neuro): normal cognition Extrem General: Yes normal to inspection Psych Attitude: cooperative Thought process: Normal thought process present Assessment & Plan Assessment & Plan (1) Encounter for well woman exam with routine gynecological exam: Code(s): Z01.419 - Encounter for gynecological examination (general) (routine) without abnormal findings Plan Discussed: Current recommendations for pap smears per ASCCP guidelines. Breast awareness, periodic self breast exams and yearly mammogram. Maintain a healthy lifestyle, well balanced diet including Calcium 1,200 mg and Vitamin D 600 IU daily, and routine exercise. Contact the office with any postmenopausal bleeding. Patient verbalizes understanding and agrees to the plan of care. She was given opportunity to ask questions and all questions were answered to the best of my ability. RTO in 1 year for annual ob/gyn exam. This note is constructed using voice recognition software. 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 Coding Level of Care Code Est Pt Prev Care 40-64y(57040) Diagnoses Encounter for well woman exam with routine gynecological exam Z01.419
== END 2024-03-15 08:35 | disposition home or self-care (01) ==
PROVIDERS: Visit Provider Advanced Practice Midwife
DX: Z01.419 Encounter for gynecological examination (general) (routine) without abnormal findings (principal)
CPT/HCPCS: 99396

== ENCOUNTER → 2024-03-15 08:11 | Outpatient (BNVA) | payer OTHER, SELFPAY | PROVIDERS: Visit Provider Advanced Practice Midwife ==

== ENCOUNTER 2024-09-05 07:25 | Outpatient (REF) | payer OTHER, SELFPAY ==
[2024-09-05 07:46] LABS: MANUAL DIFF FLAG NO
[2024-09-05 08:11] LABS: Basophils Percent Auto 0.6 % (0-2); Eosinophils Absolute Auto 0.2 X10*3/uL (0.0-0.4); Hematocrit 40.9 % (37.0-47.0); Hemoglobin 13.5 g/dl (12.0-16.0); Imm Gran Abs Auto 0.03 X10*3/uL (0.00-0.03); Imm Gran Pct Auto 0.4 % (0.0-0.4); Lymphocytes Absolute Auto 2.2 X10*3/uL (1.2-4.9); Lymphocytes Percent Auto 32.2 % (20-40); Mean Corpuscular Hemoglobin 29.5 pg (27.0-33.0); Mean Corpuscular Volume 89.5 fL (80.0-98.0); Mean Platelet Volume 9.2 fL (9.4-12.3); Monocytes Absolute Auto 0.5 X10*3/uL (0.1-1.2); Monocytes Percent Auto 6.7 % (2-11); Neutrophils Absolute Auto 3.9 x10*3/uL (2.0-8.3); Neutrophils Percent Auto 57.1 % (45-73); Platelet Count 271 X10*3/uL (160-400); Red Blood Count 4.57 X10*6/uL (4.20-5.50); Red Cell Distribution Width 12.3 % (11.0-16.0); White Blood Count 6.9 X10*3/uL (4.8-10.8)
[2024-09-05 08:18] LABS: Estimated Average Glucose 105 mg/dL; Hemoglobin A1C 123.9862 umol/L; Hemoglobin A1c % 5.3 % (<6.0); Total Hemoglobin (HGBA1C) 3553.4934 umol/L
[2024-09-05 08:23] LABS: Appearance Urine Clear; Color Urine Yellow; Glucose Urine UA Negative (Negative); Leukocyte Esterase Urine Negative (Negative); Nitrite Urine Negative (Negative); PH 5.5 (5.0-9.0); Urine Blood Negative (Negative); Urine Ketones Negative (Negative); Urine Protein Negative (Neg-Trace)
[2024-09-05 09:05] LABS: Alanine Aminotransferase 29 U/L (0-31); Alkaline Phosphatase 68 U/L (39-117); Anion Gap 9 (12-20); Aspartate Amino Transferase 25 U/L (5-31); Bilirubin Total 0.4 mg/dL (0.0-1.0); Blood Urea Nitrogen 16 mg/dL (9-16); Calcium 9.5 mg/dL (8.4-10.2); Carbon Dioxide 28 mmol/L (22-29); Chloride 108 mmol/L (96-108); Cholesterol 168 mg/dL (<200); Estimated Glomerular Filt Rate > 60; Glucose Random 103 mg/dL (60-115); HDL Cholesterol 53 mg/dL (>40); LDL Cholesterol Calculated 93 mg/dL (<100); Potassium 4.1 mmol/L (3.3-5.1); Sodium 141 mmol/L (135-145); Total Protein 6.7 g/dL (6.5-8.0); Triglycerides 111 mg/dL (<150)
[2024-09-05 09:11] LABS: Free T4 (Free Thyroxine) 0.72 ng/dL (0.71-1.85); Thyroid Stimulating Hormone 1.74 uIU/mL (0.32-4.0); Vitamin D 25-OH Total 49.8 ng/mL (>30)
[2024-09-05 09:22] LABS: Folate 7.5 ng/mL (> or = 4.0); Vitamin B12 341 pg/mL (200-900)
== END 2024-09-05 07:26 | disposition home or self-care (01) ==
LOC: HO.LAB 07:25
PROVIDERS: PCP Internal Medicine; Visit Provider Internal Medicine
DX: R73.02 Impaired glucose tolerance (oral) (principal); E78.00 Pure hypercholesterolemia, unspecified; R30.0 Dysuria
CPT/HCPCS: 36415; 80053; 80061; 81003; 82306; 82607; 82746; 83036; 84439; 84443; 85025

== ENCOUNTER 2024-09-07 16:10 | Outpatient (AMB) | payer OTHER, SELFPAY ==
[2024-09-07 16:12] VITALS: BP 144/96; PULSE 60; O2SAT 99; BMI 28.3
--- NOTE | 2024-09-07 16:12 | A.OFFPC_ITS ---
Vital Signs 09/07/24 16:12 09/07/24 16:31 Height 5 ft 6 in Weight 175 lb 0.8 oz BMI 28.3 BP 144/96 H 140/92 H Blood Pressure Location Lt brachial Lt brachial Position Sitting Sitting Pulse 60 Pulse Source Pulse Oximeter Pulse Oximetry (%) 99 Oxygen Delivery Method Room Air Intake Visit Reasons: PE Allergies atorvastatin [From Lipitor] Allergy (Unknown, Verified 03/15/24 08:16) Unknown simvastatin [SIMVASTATIN] Allergy (Unknown, Verified 03/15/24 08:16) RASH Medication List - Last Reconciled 09/07/24 by Tomi Overton MD calcium carbonate-vitamin D3 600 mg-5 mcg (200 unit) (Calcium 600 + D(3)) 1 tab PO DAILY duloxetine 30 mg PO .QD fluoxetine 40 mg PO DAILY 90 days rosuvastatin 10 mg PO DAILY Tobacco use date assessed: 09/07/24 HPI PE HPI Details 59-year-old overweight female with hyper cholesterolemia recurrent major depression obstructive sleep apnea coming in for physical exam last seen in 2022. Patient's last colonoscopy was done in 2017 and was advised to follow-up in 5 years. Mammograms up-to-date. 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 Recommended steroid injection if pain persist. Gus Horton. [facility] Medical History (Updated 09/07/24 @ 16:53 by Tomi Overton MD) Obesity (BMI 30-39.9) Colon cancer screening Diarrhea Rash Low back pain radiating to lower extremity Snoring Internal nasal lesion Cervical cancer screening Abnormal Pap smear of cervix Liver cyst Migraine Hypercholesterolemia Anxiety and depression Surgical History Hx of colonoscopy Malleolar fracture History of wisdom tooth extraction History of D&C History of appendectomy Family History Father Colon cancer Mother Hypertension Dementia Maternal Aunt Myocardial infarction Paternal Uncle Myocardial infarction Social History (Updated 09/07/24 @ 16:38 by Tomi Overton MD) Housing: House Alcohol intake: current Alcohol intake frequency: a few times a week Comment: 2 days weekend 3-4 drinks Patient Tobacco Use Status: Former Tobacco user Tobacco use type: Cigarette Years Smoked: 1985 stopped e-Cigarette/Vaping Use: Never Used Second Hand Smoke Exposure: No service: No Current occupational status: employed 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 1. Little interest or pleasure in doing things: several days 2. Feeling down, depressed, or hopeless: not at all 3. Trouble falling or staying asleep, or sleeping too much: several days 4. Feeling tired or having little energy: more than half the days 5. Poor appetite or overeating: several days 6. Feeling bad about yourself - or that you are a failure or have let yourself or your family down: not at all 7. Trouble concentrating on things, such as reading the newspaper or watching television: several days 8. Moving or speaking so slowly that other people could have noticed. Or the opposite - being so fidgety or restless that you have been moving around a lot more than usual: not at all 9. Thoughts that you would be better off or of hurting yourself in some way: not at all Total score: 6 Depression Screening Interpretation: Negative Depression Screening Done: Yes 08508 - PHQ-9 Billing: Yes Source: Developed by Drs. Luc Marmolejo, Shanta Fitch, Ti Soriano and colleagues, with an educational karoline from [employer]. Thrive Questionnaire Date Thrive assessed: 01/28/23 I am a: Patient What is your living situation today?: I have a steady place to live Within the past 12 months, did the food you bought not last and you didn't have the money to get more?: Never true Within the past 12 months, did you worry whether your food would run out before you got money to buy more?: Never true Do you have trouble paying for medicines?: No Do you have trouble getting transportation to medical appointments?: No Do you have trouble paying your heating and electricity bill?: No Do you have trouble taking care of your child, family member or friend?: No Do you have trouble with day-to-day activities such as bathing, preparing meals, shopping, managing finances, etc.?: No Are you currently unemployed and looking for a job?: No Are you interested in more education?: No Please select the resources that you would like help with: None Currently or been in a relationship where the following occur: No concerns reported THRIVE Score: 0 AUDIT C Alcohol Use Questionnaire (AUDIT-C) 1. How often do you have a drink containing alcohol?: 2-3 times a week 2. How many drinks containing alcohol do you have on a typical day when you are drinking?: 3 or 4 3. How often do you have six or more drinks on one occasion?: Never Total Score: 4 DINO-7 AMB Questionnaire DINO-7 Date DINO - 7 assessed: 09/07/24 Feeling nervous, anxious, or on edge: 0 = Not at all Not being able to stop or control worryin = Not at all Worrying too much about different things: 0 = Not at all Trouble relaxin = Not at all Being so restless that it is hard to sit still: 0 = Not at all Becoming easily annoyed or irritable: 1 = Several days Feeling afraid as if something awful might happen: 0 = Not at all Total DINO-7 score (0-4 normal; 5-9 mild; 10-14 moderate; 15-21 severe): 1 Source: Developed by Drs. Luc Marmolejo, Shanta Fitch, Ti Soriano and colleagues, with an educational karoline from [employer]. Review of Systems Const Denies poor appetite and Denies weakness Eyes Denies no additional complaints ENT Reports Normal hearing present, Denies dizziness, Denies nasal congestion, Denies tinnitus and Denies sore throat Card Denies chest pain, Denies syncope, Denies rapid heart rate and Denies dyspnea Resp Denies cough and Denies dyspnea GI Denies change in stool character, Reports constipation, Denies diarrhea, Denies nausea and Denies vomiting Denies urinary frequency, Denies difficulty voiding and Denies dysuria Neuro Reports Normal hearing present, Denies confusion, Denies dizziness, Denies syncope and Denies weakness Psych Denies confusion Physical exam (Primary Care) Vital Signs: Last Vital Signs Pulse 60 09/07/24 16:12 BP 144/96 H 09/07/24 16:12 Pulse Ox 99 09/07/24 16:12 Oxygen Delivery Method Room Air 09/07/24 16:12 BMI result Body Mass Index 28.3 Tobacco/Smoking Status: Tobacco use Status Tobacco use date assessed 09/07/24 09/07/24 16:18 Patient Tobacco Use Status Former Tobacco user 09/07/24 16:18 Tobacco use type Cigarette 09/07/24 16:18 e-Cigarette/Vaping Use Never Used 09/07/24 16:18 PHQ-9: PHQ-9 Score PHQ-9: Total score 6 09/07/24 16:18 Depression Screening Interpretation: Negative Thrive Assessment: Date of Thrive Assessment Date Thrive assessed 01/28/23 09/07/24 16:18 Currently or been in a relationship where the following occur: No concerns reported Const General: No confusion Orientation/consciousness: No confusion HENMT Other: Impacted cerumen bilateral Head: Yes normocephalic Ears: external ears normal Face and sinus: Yes normal facial exam Mouth: moist mucous membranes Throat: Yes tonsils normal Eyes Conjunctivae: conjunctivae normal Pupils: Equal, round and reactive pupils present and Pupil accommodation reflex normal Direct Ophthalmoscopy: normal light reflex Neck Neck: No lymphadenopathy Thyroid: Thyroid normal Chest Chest palpation & inspection: normal inspection of the chest Resp Effort & Inspection: normal respiratory effort and no audible wheezes Auscultation: clear to auscultation bilaterally, no crackles, no wheezes and lung sounds not diminished Cardio Rate: regular rate Rhythm: regular rhythm Peripheral pulses: radial pulses present and dorsalis pedis present GI Palpation (GI): no masses Auscultation: normal bowel sounds and normoactive bowel sounds Rectal Exam - Female: deferred Skin General skin exam: no rashes or lesions noted Rashes: no rashes Neuro General: No confusion Cranial nerves: Yes Equal, round and reactive pupils present and Yes Normal hearing present Cognition (Neuro): normal cognition Gait exam (Neuro): Normal gait present Motor exam (neuro): 5/5 motor strength present throughout Deep tendon reflexes (DTR's): Right brachioradialis reflex intensity grade: 2+, Left brachioradialis reflex intensity grade: 2+, Right patellar reflex intensity grade: 2+ and Left patellar reflex intensity grade: 2+ Extrem General: No edema Office Procedures Cerumen Removal From which ear canal was the cerumen removed: bilateral Removal: otoscope w/curette and cerumen loop/spoon Notes: patient tolerated procedure well, no complications and ear canal clear [id number] Wax Removal by Spoon/Curette Flu Questionnaire Does the patient have a severe egg allergy?: No Does the patient have severe life threatening allergies?: No Does the patient have a fever or illness today?: No Has the patient ever had Guillain-Standard Syndrome?: No Has the patient ever had any past reaction to a flu shot?: No Immunizations Fluarix Triv [id number] (PF) 45 mcg (15 mcg x 3)/0.5 mL IM syringe Performing Provider: Tomi Overton MD [facility]forming [facility]: [facility] Administered by: RAMEZ Jones on 09/07/24 16:20 Dose Route Admin Location Dispensed Lot Number Expiration Date [employer] 0.5 mL IM Left Deltoid 0.5 mL [id number] 04/30/25 03027-747-31 [facility] Given Date VIS Provided VIS Publication Date 09/07/24 Single Vaccine 21 Eligibility Eligibility Date Funding Source Not [facility] Eligible 09/07/24 Private Coding Level of Care Code Est Pt Level 3 (35461) Est Pt Prev Care 40-64y(42060) Diagnoses Annual physical exam Z00.00 Impaired glucose tolerance R73.02 Mild obstructive sleep apnea G47.33 Moderate episode of recurrent major depressive disorder F33.1 Active/Remission status: currently active Major depression episode severity: moderate Hypercholesterolemia E78.00 Overweight (BMI 25.0-29.9) E66.3 Blood pressure elevated without history of HTN R03.0 Impacted cerumen of both ears H61.23 CPT Codes Office Procedure - CPT: 38695-[id number] Wax Removal by Spoon/Curette ([id number]) Additional Codes PHQ-9 - 51920 - PHQ-9 Billing: Yes ([id number]) Assessment & Plan Assessment & Plan (1) Annual physical exam: Code(s): Z00.00 - Encounter for general adult medical examination without abnormal findings Category: Medical Plan: Patient is advised to eat healthy, keep well hydrated, keep active and have adequate sleep. (2) Impaired glucose tolerance: Code(s): R73.02 - Impaired glucose tolerance (oral) Category: Medical Plan: Decrease the amount of carbohydrate intake, pasta, bread, rice and potatoes are all sugar and that is aside from all the sweet stuff, remember that fruits are good but they are Sweet also. (3) Mild obstructive sleep apnea: Comment: November 2020 Code(s): G47.33 - Obstructive sleep apnea (adult) (pediatric) Category: Medical Plan: Continue to use the CPAP more than 4 hours a night and benefits from this (4) Recurrent major depression: Code(s): F33.9 - Major depressive disorder, recurrent, unspecified Category: Medical Qualifiers: Active/Remission status: currently active Major depression episode severity: moderate Qualified Code(s): F33.1 - Major depressive disorder, recurrent, moderate Plan: Continue with present management (5) Hypercholesterolemia: Code(s): E78.00 - Pure hypercholesterolemia, unspecified Category: Medical Plan: Avoid fried foods, chicken skin, eggs, butter margarine, pastries and meat. Be it pork or beef they have a lot of cholesterol on rosuvastatin 10 mg once a day (6) Overweight (BMI 25.0-29.9): Code(s): E66.3 - Overweight Category: Medical Plan: Diet and exercise (7) Blood pressure elevated without history of HTN: Code(s): R03.0 - Elevated blood-pressure reading, without diagnosis of hypertension Category: Medical Plan: Advised to monitor blood pressure and record. Meanwhile low salt diet and keep active (8) Impacted cerumen of both ears: Code(s): H61.23 - Impacted cerumen, bilateral Category: Medical Plan: Scoop used no irrigation TM intact Orders: Orders Influenza [id number] Immunization Today Z23 - Encounter for immunization
[2024-09-07 16:31] VITALS: BP 140/92
== END 2024-09-07 17:02 | disposition home or self-care (01) ==
LOC: HO.HMCH 16:11
PROVIDERS: PCP Internal Medicine; Visit Provider Internal Medicine
DX: Z00.00 Encounter for general adult medical examination without abnormal findings (principal); F33.1 Major depressive disorder, recurrent, moderate; R73.02 Impaired glucose tolerance (oral); G47.33 Obstructive sleep apnea (adult) (pediatric); E78.00 Pure hypercholesterolemia, unspecified; E66.3 Overweight; R03.0 Elevated blood-pressure reading, without diagnosis of hypertension; H61.23 Impacted cerumen, bilateral

== ENCOUNTER → 2024-09-07 16:10 | Outpatient (BNVA) | payer OTHER, SELFPAY | PROVIDERS: PCP Internal Medicine; Visit Provider Internal Medicine | DX: Z00.01 Encounter for general adult medical examination with abnormal findings (principal); H61.23 Impacted cerumen, bilateral; R73.02 Impaired glucose tolerance (oral); F33.1 Major depressive disorder, recurrent, moderate; E78.00 Pure hypercholesterolemia, unspecified; E66.3 Overweight; R03.0 Elevated blood-pressure reading, without diagnosis of hypertension; Z23 Encounter for immunization | CPT/HCPCS: 69210; 90471; 90656; 96127 ==

== ENCOUNTER → 2024-09-21 15:51 | Outpatient (BNVA) | payer OTHER, SELFPAY | PROVIDERS: PCP Internal Medicine; Visit Provider Internal Medicine ==

== ENCOUNTER 2024-12-28 15:39 | Outpatient (REF) | payer OTHER, SELFPAY ==
--- OUTSIDE RECORDS SUMMARY | 2024-12-28 19:02 | XMS_ITS | Clinical Summary ---
Author Organization [address] Address [address] [place] [phone] Phone Care Team Providers Care Back Tufter Name Role Phone No, Pcp (Do Not Change Name) Primary Care Provid er Unavailable Allergies No known active allergies Medications ibuprofen (ADVIL,MOTRIN) 600 MG tablet Take 1 tablet (600 mg total) by mouth every 6 (six) hours as needed.. 20 tablet 05/10/2018 Active Social History Tobacco Use Types Packs/Day Years Used Date Smoking Tobacco: Former Smokeless Tobacco: Never Alcohol Use Standard Drinks/Week Comments Yes 6 (1 standard drink = 0.6 oz pur e alcohol) Comments Unknown Sex and Gender Information Value Date Recorded Sex Assigned at Not on file Legal Sex Female 3:10 PM EDT Gender Identity Not on file Sexual Orientation Not on file Last Filed Vital Signs Vital Sign Reading Time Taken Comments Blood Pressure 122/65 05/10/2018 4:53 PM EDT Pulse 64 05/10/2018 4:53 PM EDT Temperature 36.4 ??C (97.6 ??F) 05/10/2018 3:15 PM ED T Respiratory Rate 18 05/10/2018 4:53 PM EDT Oxygen Saturation 100% 05/10/2018 4:53 PM EDT Inhaled Oxygen Concentration - - Weight - - Height - - Body Mass Index - - Plan of Treatment Health Maintenance Due Date Last Done Comments HIV screening 1976 Hepatitis C screening 1981 Tetanus adult (Td q 10,TDAP once) 1983 Cervical cancer screening 1984 Breast cancer screening 2003 Lipid disorder screening 2003 Colon cancer screening, Colonoscopy 2008 Diabetes screening 2008 Shingles vaccine (Shingrix) (1 of 2 - Shingrix (RZV) 2 Dose Standard Series) 2013 Influenza vaccine 06/01/2024 Covid-19 vaccine series (1 - 2023-25 season) 2024 Pneumococcal Vaccine (50+ ye ars) (1 of 1 - PCV) 2028 RSV Discussion (1 - 1-dose 7 5+ series) 2038 Meningococcal Vaccine Aged Out No chris shun eligible based on patient's age to complete this topic Pneumococcal Vaccine (2 - 49 years) Aged Out No longer eligible based on patient's age to complete this topic Insurance ([place]) [address] [place] [id number] COMMERCIAL GENERIC COMMERCIAL GENERIC COMMERCIAL GENERIC Care Teams Back Tufter Relationship Specialty Start Date End Date No, Pcp (Do Not Change Name) PCP - General 05/10/18
== END 2024-12-28 15:40 | disposition home or self-care (01) ==
LOC: HO.MAMMO 15:39
PROVIDERS: PCP Internal Medicine; Visit Provider Internal Medicine
DX: Z12.31 Encounter for screening mammogram for malignant neoplasm of breast (principal)
CPT/HCPCS: 77063; 77067

== ENCOUNTER → 2024-12-28 15:45 | Outpatient (BNV) | payer OTHER, SELFPAY | PROVIDERS: PCP Internal Medicine; Visit Provider Internal Medicine | DX: Z12.31 Encounter for screening mammogram for malignant neoplasm of breast (principal) | CPT/HCPCS: 77063; 77067 ==

== ENCOUNTER 2024-12-29 15:52 | Outpatient (AMB) | payer OTHER, SELFPAY ==
[2024-12-29 15:57] VITALS: BP 122/80; PULSE 75; O2SAT 98
--- NOTE | 2024-12-29 15:57 | MHC.PC.OV ---
Vital Signs 12/29/24 15:57 Height 5 ft 6 in BMI Reason not done Patient refused/unable BP 122/80 Blood Pressure Location Lt brachial Position Sitting Pulse 75 Pulse Source Pulse Oximeter Pulse Oximetry (%) 98 Oxygen Delivery Method Room Air Intake Visit Reasons: follow up 3 months Repair Service Clerk Required: No Accompanied by: Self / Same As Patient Allergies atorvastatin [From Lipitor] Allergy (Unknown, Verified 12/29/24 15:59) Unknown simvastatin [SIMVASTATIN] Allergy (Unknown, Verified 12/29/24 15:59) RASH Tobacco use date assessed: 12/29/24 Dental Screening Dental Screen Date: 12/29/24 Did you have a dental visit in the last 12 months?: Yes Did you have a dental problem in the last 6 months where you did not have access to dental care?: No Was dental information given to patient?: Patient has dentist [facility] Medical History (Updated 09/07/24 @ 16:53 by Tomi Overton MD) Obesity (BMI 30-39.9) Colon cancer screening Diarrhea Rash Low back pain radiating to lower extremity Snoring Internal nasal lesion Cervical cancer screening Abnormal Pap smear of cervix Liver cyst Migraine Hypercholesterolemia Anxiety and depression Surgical History Hx of colonoscopy Malleolar fracture History of wisdom tooth extraction History of D&C History of appendectomy Family History Father Colon cancer Mother Hypertension Dementia Maternal Aunt Myocardial infarction Paternal Uncle Myocardial infarction Social History Housing: House Alcohol intake: current Alcohol intake frequency: a few times a week Comment: 2 days weekend 3-4 drinks Patient Tobacco Use Status: Former Tobacco user Tobacco use type: Cigarette Years Smoked: 1985 stopped e-Cigarette/Vaping Use: Never Used Second Hand Smoke Exposure: No service: No Current occupational status: employed 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 1. Little interest or pleasure in doing things: several days 2. Feeling down, depressed, or hopeless: not at all 3. Trouble falling or staying asleep, or sleeping too much: several days 4. Feeling tired or having little energy: more than half the days 5. Poor appetite or overeating: several days 6. Feeling bad about yourself - or that you are a failure or have let yourself or your family down: not at all 7. Trouble concentrating on things, such as reading the newspaper or watching television: several days 8. Moving or speaking so slowly that other people could have noticed. Or the opposite - being so fidgety or restless that you have been moving around a lot more than usual: not at all 9. Thoughts that you would be better off or of hurting yourself in some way: not at all Total score: 6 Depression Screening Interpretation: Negative Depression Screening Done: Yes 27719 - PHQ-9 Billing: Yes Source: Developed by Drs. Luc Marmolejo, Shanta Fitch, Ti Soriano and colleagues, with an educational karoline from [employer]. Thrive Questionnaire Date Thrive assessed: 12/29/24 I am a: Patient What is your living situation today?: I have a steady place to live Within the past 12 months, did the food you bought not last and you didn't have the money to get more?: Never true Within the past 12 months, did you worry whether your food would run out before you got money to buy more?: Never true Do you have trouble paying for medicines?: No Do you have trouble getting transportation to medical appointments?: No Do you have trouble paying your heating and electricity bill?: No Do you have trouble taking care of your child, family member or friend?: No Do you have trouble with day-to-day activities such as bathing, preparing meals, shopping, managing finances, etc.?: No Are you currently unemployed and looking for a job?: No Are you interested in more education?: No Please select the resources that you would like help with: None Currently or been in a relationship where the following occur: No concerns reported THRIVE Score: 0 AUDIT C Alcohol Use Questionnaire (AUDIT-C) 1. How often do you have a drink containing alcohol?: Monthly or less 2. How many drinks containing alcohol do you have on a typical day when you are drinking?: 3 or 4 3. How often do you have six or more drinks on one occasion?: Never Total Score: 2 DINO-7 AMB Questionnaire DINO-7 Date DINO - 7 assessed: 12/29/24 Feeling nervous, anxious, or on edge: 0 = Not at all Not being able to stop or control worryin = Not at all Worrying too much about different things: 0 = Not at all Trouble relaxin = Not at all Being so restless that it is hard to sit still: 0 = Not at all Becoming easily annoyed or irritable: 1 = Several days Feeling afraid as if something awful might happen: 0 = Not at all Total DINO-7 score (0-4 normal; 5-9 mild; 10-14 moderate; 15-21 severe): 1 Source: Developed by Drs. Luc Marmolejo, Shanta Fitch, Ti Soriano and colleagues, with an educational karoline from [employer]. Physical exam (Primary Care) Vital Signs: Last Vital Signs Pulse 75 12/29/24 15:57 BP 122/80 12/29/24 15:57 Pulse Ox 98 12/29/24 15:57 Oxygen Delivery Method Room Air 12/29/24 15:57 Tobacco/Smoking Status: Tobacco use Status Tobacco use date assessed 12/29/24 12/29/24 16:03 Patient Tobacco Use Status Former Tobacco user 12/29/24 15:58 Tobacco use type Cigarette 12/29/24 15:58 e-Cigarette/Vaping Use Never Used 12/29/24 15:58 PHQ-9: PHQ-9 Score PHQ-9: Total score 6 12/29/24 16:03 Depression Screening Interpretation: Negative Thrive Assessment: Date of Thrive Assessment Date Thrive assessed 12/29/24 12/29/24 15:58 Currently or been in a relationship where the following occur: No concerns reported Const General: alert; No acute distress Eyes Conjunctivae: conjunctivae normal Resp Auscultation: clear to auscultation bilaterally Cardio Rate: regular rate Rhythm: regular rhythm GI Inspection: Yes normal to inspection Extrem General: Yes normal to inspection and No edema Coding Level of Care Code Est Pt Level 4 (92885) Diagnoses Blood pressure elevated without history of HTN R03.0 Impaired glucose tolerance R73.02 Hypercholesterolemia E78.00 Moderate episode of recurrent major depressive disorder F33.1 Active/Remission status: currently active Major depression episode severity: moderate Additional Codes PHQ-9 - 70931 - PHQ-9 Billing: Yes ([id number]) Assessment & Plan Assessment & Plan (1) Blood pressure elevated without history of HTN: Code(s): R03.0 - Elevated blood-pressure reading, without diagnosis of hypertension Category: Medical Plan: Repeat Blood pressure check has been good (2) Impaired glucose tolerance: Code(s): R73.02 - Impaired glucose tolerance (oral) Category: Medical Plan: Decrease the amount of carbohydrate intake, pasta, bread, rice and potatoes are all sugar and that is aside from all the sweet stuff, remember that fruits are good but they are Sweet also. (3) Hypercholesterolemia: Code(s): E78.00 - Pure hypercholesterolemia, unspecified Category: Medical Plan: Avoid fried foods, chicken skin, eggs, butter margarine, pastries and meat. Be it pork or beef they have a lot of cholesterol on rosuvastatin 10 mg once a day (4) Recurrent major depression: Code(s): F33.9 - Major depressive disorder, recurrent, unspecified Category: Medical Qualifiers: Active/Remission status: currently active Major depression episode severity: moderate Qualified Code(s): F33.1 - Major depressive disorder, recurrent, moderate Plan: Continue with present medication Plan History of Present Illness The patient is a 59-year-old female presenting for a follow-up appointment. At her last visit, conducted in September, laboratory workup indicated normal levels, except for elevated blood glucose with a normal hemoglobin A1c. Cholesterol management appears successful with an LDL cholesterol of 93 mg/dL while on rosuvastatin 10 mg. A significant family history is noted, as the patient?s family has incidences of colon cancer. Regular screenings have been implemented with her latest colonoscopy in April 2023. Additionally, a recent mammogram was completed though results are pending. The patient also experienced improvement in blood pressure management. Her vaccination records show she received her annual flu shot and other vaccines, including the tetanus shot. There is a prior diagnosis of major depressive disorder, though it was not a focal point of this visit. The patient did not report any additional symptoms, indicating general maintenance of health with current healthcare strategies. Health Maintenance - Completed mammogram, awaiting results - Flu vaccine administered - Up to date with tetanus vaccination - Last colonoscopy performed in April 2023 - LDL cholesterol management with rosuvastatin 10 mg/day Social History Review of Systems Physical Exam Results - Normal complete blood count - Normal electrolytes - Elevated blood glucose - Normal hemoglobin A1c - LDL cholesterol: 93 mg/dL Plan Management of hypercholesterolemia continues with rosuvastatin, showing effective cholesterol control. Surveillance for elevated blood glucose through regular monitoring is advised, given normal hemoglobin A1c levels. Await results from the recently conducted mammogram to assess current breast health status. Continue managing blood pressure effectively, maintaining current measures due to observed improvements. Encourage adherence to preventative measures with colonoscopy screenings periodically due to familial colon cancer history. The patient is up to date with critical vaccinations, including flu and tetanus shots, and will maintain this schedule. Patient was informed and verbally consented to the use of an ambient scribe for clinic note documentation during this visit. Discussion Notes During today's visit, I reviewed the patient's current management of hypercholesterolemia, which is responding well to rosuvastatin therapy.. I noted improvements in the patient's blood pressure readings and emphasized the importance of continuing current management practices. The patient is compliant with her vaccination schedule, including her flu and tetanus shots. We also discussed the family history of colon cancer and the necessity of routine screenings. Diagnostic results, dental health updates, and return precautions were outlined, ensuring comprehensive follow-up. Patient Instructions - Continue taking rosuvastatin 10 mg once daily - - Await mammogram results and follow up as needed - Maintain regular blood pressure checks - Adhere to scheduled colonoscopy screenings due to family history - Stay current with vaccinations - Return for follow-up as scheduled in September
--- OUTSIDE RECORDS SUMMARY | 2024-12-29 17:50 | XMS_ITS | Clinical Summary ---
Author Organization [address] Address [address] [place] [phone] Phone Care Team Providers Care Passenger Barge Master Name Role Phone No, Pcp (Do Not [...] patient's age to complete this topic Insurance ([place]) [address] [place] [address] COMMERCIAL GENERIC COMMERCIAL GENERIC COMMERCIAL GENERIC Care Teams Passenger Barge Master Relationship Specialty Start Date End Date No, Pcp (Do Not Change Name) PCP - General 05/10/18
== END 2024-12-29 16:47 | disposition home or self-care (01) ==
PROVIDERS: PCP Internal Medicine; Visit Provider Internal Medicine
DX: R03.0 Elevated blood-pressure reading, without diagnosis of hypertension (principal); R73.02 Impaired glucose tolerance (oral); E78.00 Pure hypercholesterolemia, unspecified; F33.1 Major depressive disorder, recurrent, moderate

== ENCOUNTER → 2024-12-29 15:52 | Outpatient (BNVA) | payer OTHER, SELFPAY | PROVIDERS: PCP Internal Medicine; Visit Provider Internal Medicine | DX: R03.0 Elevated blood-pressure reading, without diagnosis of hypertension (principal); R73.02 Impaired glucose tolerance (oral); E78.00 Pure hypercholesterolemia, unspecified; F33.1 Major depressive disorder, recurrent, moderate; Z79.899 Other long term (current) drug therapy | CPT/HCPCS: 96127 ==

== ENCOUNTER 2025-07-12 08:01 | Outpatient (REF) | payer OTHER, SELFPAY ==
--- OUTSIDE RECORDS SUMMARY | 2025-07-12 09:38 | XMS_ITS | Clinical Summary ---
Author Organization [address] Address [address] [place] [phone] Phone Care Team Providers Care Waitstaff Name Role Phone No, Pcp (Do Not [...] 62 05/10/2018 4:53 PM EDT Temperature 36.4 C (97.6 F) 05/10/2018 3:15 PM EDT Respiratory Rate 18 05/10/2018 4:53 PM EDT [...] cancer screening, Colonoscopy 2008 Diabetes screening 2008 Pneumococcal Vaccine (50+ ye ars) (1 of 1 - PCV) 2013 Shingles vaccine (Shingrix) (1 of 2 - Shingrix (RZV) 2 Dose Standard Series) 2013 Covid-19 vaccine series ( - season) 2025 Influenza vaccine 07/02/2025 RSV Immunization (1 - 1-dose 75+ series) 2038 Meningococcal B Vaccine Aged Out No l onger eligible based on patient's age to complete this topic Meningococcal Vaccine Aged Out No chris shun eligible based on patient's age to complete this topic Insurance COMMERCIAL GENERIC COMMERCIAL GENERIC COMMERCIAL GENERIC Care Teams Waitstaff Relationship Specialty Start Date End Date No, Pcp (Do Not Change Name) PCP - General 05/10/18
--- OUTSIDE RECORDS SUMMARY | 2025-07-12 09:38 | XMS_ITS | Patient Health Record ---
Author Organization [facility] Address [address] [place] [address] Care Team Providers Care Telecom Billing Analyst Name Role Phone Po Tomi CUBA Primary Care Provider Mich Caldera Jr Reason For Referral No Information Medications Medication SIG (Take, Route, Frequency, Duration) Notes Start Date End Date Status Daily Vitamin 1 tablet Orally Once a day Active Crestor 5 MG 1 tablet Orally Once a day Active Suprep Bowel Prep 1 as directed Orally 1 for 1 dose 02/21/2015 Active Zoloft 100 MG 2 tablet Orally Once a day Active Calcium + D 500-1000-40 MG-UNT-MCG Orally Active Problems Problem Type SNOMED Code ICD Code Onset Dates Problem Status W/U Status Risk Notes Problem 16719122 Irritable bowel syndrome (564.1) Active confirmed Problem 092782913 Colon cancer screening (V76.51) Active confirmed Plan Of Treatment Future Test Test Name Order Date COLONOSCOPY 02/21/2015 Insurance Providers Payer Name Payer Address Payer Phone Subscriber Number Group Number Insured Name Patient Relationship to Insured Coverage Start Date Coverage End Date [facility] [address] [place] [phone] [id number] DEION WATKINS Self - patient is the insured Medical (General) History Medical History History ICD Code colonoscopy 12-18-2009 abdominal discomfort migraines situational depression elevated cholesterol Surgical History Surgery Date(Month/Year) appendectomy dental extractions D&C
== END 2025-07-12 08:02 | disposition home or self-care (01) ==
LOC: HO.LNP 08:01
PROVIDERS: PCP Internal Medicine; Visit Provider Advanced Practice Midwife
DX: Z01.419 Encounter for gynecological examination (general) (routine) without abnormal findings (principal); R87.610 Atypical squamous cells of undetermined significance on cytologic smear of cervix (ASC-US)
CPT/HCPCS: 87626; 88175

== ENCOUNTER 2025-07-12 08:01 | Outpatient (AMB) | payer OTHER, SELFPAY ==
--- NOTE | 2025-07-12 08:03 | MHC.OFFVIS ---
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 Hr Assistant concerns: none. Currently sexually active. Denies any vaginal dryness or irritation. Attempting to eat a healthy diet with calcium and vitamin D and stays active with exercise-pickle ball. Last pap smear; 2022, ascus, pt. concerned re: results. Last mammogram; 2024. Colonoscopy is UTD. Denies any family history of breast, ovarian or colon cancer. [facility] Medical History (Updated 07/12/25 @ 08:46 by Leonor Fofana CNM) Obesity (BMI 30-39.9) Colon cancer screening Diarrhea Rash Low back pain radiating to lower extremity Snoring Internal nasal lesion Cervical cancer screening Abnormal Pap smear of cervix Liver cyst Migraine Hypercholesterolemia Anxiety and depression Surgical History Hx of colonoscopy Malleolar fracture History of wisdom tooth extraction History of D&C History of appendectomy Family History Father Colon cancer Mother Hypertension Dementia Maternal Aunt Myocardial infarction Paternal Uncle Myocardial infarction Social History Housing: House Alcohol intake: current Alcohol intake frequency: a few times a week Comment: 2 days weekend 3-4 drinks Patient Tobacco Use Status: Former Tobacco user Tobacco use type: Cigarette Years Smoked: 1985 stopped e-Cigarette/Vaping Use: Never Used Second Hand Smoke Exposure: No service: No Current occupational status: employed 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 Sexual orientation: Straight/Heterosexual Gender identity: Female Cognitive needs: No Hearing needs: No Vision needs: No Female Reproductive History Menstrual Age of Menarche: 9 Total pregnancies: 5 Full term: 3 Number of Living Children: 3 Ab induced: 1 Ab spontaneous: 1 Date of last pap smear: 03/09/23 ([facility]) History of abnormal pap smear: Yes Date of Mammogram: 12/28/24 ([facility] 2) Review of Systems Const All systems reviewed & are unremarkable except as noted in HPI and below Reports as per HPI Eyes Reports no additional complaints ENT Reports no additional complaints Card Reports no additional complaints Resp Reports no additional complaints GI Reports as per HPI and Reports no additional complaints Reports as per HPI Musc Reports no additional complaints Skin/Breast Reports as per HPI Neuro Reports no additional complaints Psych Reports no additional complaints Endo Reports no additional complaints Bryant/Lymph Reports no additional complaints Aller/Immun Reports no additional complaints Physical Exam Vital Signs: BMI result Body Mass Index 29.0 Const General: cooperative, healthy appearing, no acute distress, well developed and alert Orientation/consciousness: patient oriented x3 HEENT Head: Yes normal to inspection Eyes General: appearance normal, both eyes and all related structures Neck Neck: Yes normal visual inspection Thyroid: Thyroid normal Chest Chest palpation & inspection: normal inspection of the chest and other (no puckering, dimpling, peau de orange, retraction, discharge, masses) Breast/axilla inspection: normal inspection of the breasts Breast/axilla palpation: normal palpation of the breasts Resp Effort & Inspection: normal respiratory effort GI Inspection: Yes normal to inspection Palpation (GI): Soft to palpation Rectal Exam - Female: deferred General: Yes bladder normal to palpation External Female Exam: normal external appearance and normal appearance of the urethra Speculum Exam - Vagina: normal appearance of the vagina, normal palpation and normal vaginal discharge Speculum Exam - Cervix: normal appearance of the cervix and normal palpation Bimanual exam- vagina & uterus: normal bimanual exam, normal palpation, uterine size normal, bladder normal to palpation, normal palpation and non-tender Bimanual Exam- Adnexa, other: no masses Skin General skin exam: no rashes or lesions noted Rashes: no rashes Neuro General: patient oriented x3 Cognition (Neuro): normal cognition Extrem General: Yes normal to inspection Psych Attitude: cooperative Thought process: Normal thought process present Assessment & Plan Assessment & Plan (1) Encounter for annual routine gynecological examination: Code(s): Z01.419 - Encounter for gynecological examination (general) (routine) without abnormal findings Category: Medical Plan: Discussed: Current recommendations for pap smears per ASCCP guidelines. Breast awareness, periodic self breast exams and yearly mammogram. Maintain a healthy lifestyle, well balanced diet including Calcium 1,200 mg and Vitamin D 600 IU daily, and routine exercise. Contact the office with any postmenopausal bleeding. Patient verbalizes understanding and agrees to the plan of care. She was given opportunity to ask questions and all questions were answered to the best of my ability. RTO in 1 year for annual home health care respiratory therapist exam. This note is constructed using voice recognition software. While every effort has been made to ensure accuracy, pediatric hospitalist errors may have been included. (2) Atypical squamous cells of undetermined significance (ASC-US) on cervical Pap smear: Code(s): R87.610 - Atypical squamous cells of undetermined significance on cytologic smear of cervix (ASC-US) Plan Repeat Pap obtained. Await results for final of care Orders: Orders HPV High risk Today Z01.419 - Encounter for gynecological examination (general) (routine) without abnormal findings Pap Smear Today Z01.419 - Encounter for gynecological examination (general) (routine) without abnormal findings Coding Level of Care Code New Pt Prev Care 40-64y(69872) Diagnoses Encounter for annual routine gynecological examination Z01.419 Atypical squamous cells of undetermined significance (ASC-US) on cervical Pap smear R87.610
[2025-07-12 08:08] VITALS: BP 114/74; BMI 29.0
== END 2025-07-12 08:38 | disposition home or self-care (01) ==
LOC: HO.HWS 08:01
PROVIDERS: PCP Internal Medicine; Visit Provider Advanced Practice Midwife
DX: Z01.419 Encounter for gynecological examination (general) (routine) without abnormal findings (principal); R87.610 Atypical squamous cells of undetermined significance on cytologic smear of cervix (ASC-US)
CPT/HCPCS: 99396; 99459

== ENCOUNTER 2025-09-11 08:26 | Outpatient (REF) | payer OTHER, SELFPAY ==
[2025-09-11 08:37] LABS: MANUAL DIFF FLAG NO
--- OUTSIDE RECORDS SUMMARY | 2025-09-11 08:41 | XMS_ITS | Clinical Summary ---
Author Organization [address] Address [address] [place] [phone] Phone Care Team Providers Care Mainspring Strip Inspector Name Role Phone No, Pcp (Do Not [...] 2 Dose Standard Series) 2013 Influenza vaccine 06/01/2025 Covid-19 vaccine series (1 - 2024- season) 2025 RSV Immunization (1 - 1-dose 75+ series) 2038 Meningococcal B Vaccine Aged Out No l onger eligible based on patient's age to complete this topic Meningococcal Vaccine Aged Out No chris shun eligible based on patient's age to complete this topic Insurance COMMERCIAL GENERIC COMMERCIAL GENERIC COMMERCIAL GENERIC Care Teams Mainspring Strip Inspector Relationship Specialty Start Date End Date No, Pcp (Do Not Change Name) PCP - General 05/10/18
--- OUTSIDE RECORDS SUMMARY | 2025-09-11 08:41 | XMS_ITS | Patient Health Record ---
Author Organization [facility] Address [address] [place] [address] Care Team Providers Care Hose Mender Name Role Phone Po Tomi CUBA Primary Care Provider Mich Caldera Jr [phone] Reason For Referral No Information Medications Medication SIG (Take, Route, Frequency, Duration) Notes Start Date End Date Status Daily Vitamin 1 tablet Orally Once a day Active Crestor 5 MG 1 tablet Orally Once a day Active Suprep Bowel Prep 1 as directed Orally 1 ; Duration: 1 dose 02/21/2015 Active Zoloft 100 MG 2 tablet Orally Once a day Active Calcium + D 500-1000-40 MG-UNT-MCG Orally Active Problems Problem Type SNOMED Code ICD Code Onset Dates Problem Status W/U Status Risk Notes Problem Irritable bowel syndrome (78499635) Irritable bowel syndrome (564.1) Active confirmed Problem Colon cancer screening (708266387) Colon cancer screening (V76.51) Active confirmed Plan Of Treatment Future Test Test Name Order Date COLONOSCOPY 02/21/2015 Insurance Providers Payer Name Payer Address Payer Phone Subscriber Number Group Number Insured Name Patient Relationship to Insured Coverage Start Date Coverage End Date [facility] [address] [facility] [place] [phone] [id number] DEION WATKINS Self - patient is the insured Medical (General) History Medical History History ICD Code colonoscopy 12-18-2009 abdominal discomfort migraines situational depression elevated cholesterol Surgical History Surgery Date(Month/Year) appendectomy dental extractions D&C
[2025-09-11 09:43] LABS: Hematocrit 40.6 % (37.0-47.0); Hemoglobin 13.5 g/dl (12.0-16.0); Imm Gran Abs Auto 0.02 X10*3/uL (0.00-0.03); Imm Gran Pct Auto 0.3 % (0.0-0.4); Lymphocytes Absolute Auto 1.9 X10*3/uL (1.2-4.9); Mean Corpuscular HGB Conc 33.3 g/dl (31.0-35.0); Mean Corpuscular Hemoglobin 30.1 pg (27.0-33.0); Mean Corpuscular Volume 90.4 fL (80.0-98.0); NRBC Abs Auto 0.000 X10*3/uL (0.0-0.012); NRBC Pct Auto 0.0 /100WBC (0.0-0.2); Platelet Count 258 X10*3/uL (160-400); Red Blood Count 4.49 X10*6/uL (4.20-5.50); White Blood Count 6.1 X10*3/uL (4.8-10.8)
[2025-09-11 10:10] LABS: Alanine Aminotransferase 27 U/L (0-31); Albumin Level 4.2 g/dL (3.5-5.0); Alkaline Phosphatase 77 U/L (39-117); Anion Gap 13 (12-20); Aspartate Amino Transferase 23 U/L (5-31); Blood Urea Nitrogen 16 mg/dL (9-16); Calcium 9.2 mg/dL (8.4-10.2); Carbon Dioxide 24 mmol/L (22-29); Chloride 108 mmol/L (96-108); Cholesterol 165 mg/dL (<200); Estimated Glomerular Filt Rate > 60; HDL Cholesterol 53 mg/dL (>40); Potassium 4.0 mmol/L (3.3-5.1); Sodium 141 mmol/L (135-145); Total Protein 6.5 g/dL (6.5-8.0); Triglycerides 133 mg/dL (<150)
[2025-09-11 10:28] LABS: Folate 12.3 ng/mL (> or = 4.0); Vitamin B12 395 pg/mL (200-900)
[2025-09-11 10:35] LABS: Free T4 (Free Thyroxine) 0.82 ng/dL (0.71-1.85); Thyroid Stimulating Hormone 1.72 uIU/mL (0.32-4.0)
== END 2025-09-11 08:27 | disposition home or self-care (01) ==
LOC: HO.LAB 08:26
PROVIDERS: PCP Internal Medicine; Visit Provider Internal Medicine
DX: R73.02 Impaired glucose tolerance (oral) (principal); E78.00 Pure hypercholesterolemia, unspecified
CPT/HCPCS: 36415; 80053; 80061; 82306; 82607; 82746; 83036; 84439; 84443; 85025

== ENCOUNTER 2025-09-13 16:05 | Outpatient (AMB) | payer OTHER, SELFPAY ==
[2025-09-13 16:07] VITALS: BP 120/90; PULSE 69; TEMP 36.7; O2SAT 98; BMI 28.9
--- NOTE | 2025-09-13 16:07 | A.OFFPC_ITS ---
Vital Signs 09/13/25 16:07 09/13/25 16:31 Height 5 ft 6 in Weight 179 lb 2 oz BMI 28.9 BP 120/90 H 140/80 H Blood Pressure Location Lt brachial Lt brachial Position Sitting Sitting Pulse 69 Pulse Source Pulse Oximeter Temp 98.1 F Temp Source Temporal Artery Scan Pulse Oximetry (%) 98 Oxygen Delivery Method Room Air Intake Visit Reasons: physical Allergies atorvastatin (From Lipitor) Allergy (Unknown, Verified 09/13/25 16:08) Unknown simvastatin (SIMVASTATIN) Allergy (Unknown, Verified 09/13/25 16:08) RASH Medication List - Last Reconciled 09/13/25 by Tomi Overton MD calcium carbonate-vitamin D3 600 mg-5 mcg (200 unit) (Calcium 600 + D(3)) 1 tab PO DAILY fluoxetine 40 mg PO DAILY 90 days rosuvastatin 10 mg PO DAILY Tobacco use date assessed: 12/29/24 Dental Screening Dental Screen Date: 12/29/24 [facility] Medical History Obesity (BMI 30-39.9) Colon cancer screening Diarrhea Rash Low back pain radiating to lower extremity Snoring Internal nasal lesion Cervical cancer screening Abnormal Pap smear of cervix Liver cyst Migraine Hypercholesterolemia Anxiety and depression Surgical History Hx of colonoscopy Malleolar fracture History of wisdom tooth extraction History of D&C History of appendectomy Family History Father Colon cancer Mother Hypertension Dementia Maternal Aunt Myocardial infarction Paternal Uncle Myocardial infarction Social History (Updated 09/13/25 @ 16:34 by Tomi Overton MD) Housing: House Alcohol intake: current Alcohol intake frequency: a few times a week Comment: 2 days weekend 3-4 drinks, 3x a week-3 week Patient Tobacco Use Status: Former Tobacco user Tobacco use type: Cigarette Years Smoked: 1985 stopped e-Cigarette/Vaping Use: Never Used Second Hand Smoke Exposure: No service: No Current occupational status: employed 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 1. Little interest or pleasure in doing things: several days 2. Feeling down, depressed, or hopeless: not at all 3. Trouble falling or staying asleep, or sleeping too much: several days 4. Feeling tired or having little energy: several days 5. Poor appetite or overeating: not at all 6. Feeling bad about yourself - or that you are a failure or have let yourself or your family down: several days 7. Trouble concentrating on things, such as reading the newspaper or watching television: several days 8. Moving or speaking so slowly that other people could have noticed. Or the opposite - being so fidgety or restless that you have been moving around a lot more than usual: not at all 9. Thoughts that you would be better off or of hurting yourself in some way: not at all Total score: 5 Depression Screening Interpretation: Positive Depression Screening Done: Yes 15357 - PHQ-9 Billing: Yes Source: Developed by Drs. Luc Marmolejo, Shanta Fitch, Ti Soriano and colleagues, with an educational karoline from [employer]. Thrive Questionnaire Date Thrive assessed: 12/29/24 I am a: Patient What is your living situation today?: I have a steady place to live Within the past 12 months, did the food you bought not last and you didn't have the money to get more?: Never true Within the past 12 months, did you worry whether your food would run out before you got money to buy more?: Never true Do you have trouble paying for medicines?: No Do you have trouble getting transportation to medical appointments?: No Do you have trouble paying your heating and electricity bill?: No Do you have trouble taking care of your child, family member or friend?: No Do you have trouble with day-to-day activities such as bathing, preparing meals, shopping, managing finances, etc.?: No Are you currently unemployed and looking for a job?: No Are you interested in more education?: No Please select the resources that you would like help with: None Currently or been in a relationship where the following occur: No concerns reported THRIVE Score: 0 AUDIT C Alcohol Use Questionnaire (AUDIT-C) 1. How often do you have a drink containing alcohol?: 2-3 times a week 2. How many drinks containing alcohol do you have on a typical day when you are drinking?: 1 or 2 3. How often do you have six or more drinks on one occasion?: Never Total Score: 3 DINO-7 AMB Questionnaire DINO-7 Date DINO - 7 assessed: 12/29/24 Feeling nervous, anxious, or on edge: 0 = Not at all Not being able to stop or control worryin = Not at all Worrying too much about different things: 1 = Several days Trouble relaxin = Not at all Being so restless that it is hard to sit still: 0 = Not at all Becoming easily annoyed or irritable: 0 = Not at all Feeling afraid as if something awful might happen: 0 = Not at all Total DINO-7 score (0-4 normal; 5-9 mild; 10-14 moderate; 15-21 severe): 1 Source: Developed by Drs. Luc Marmolejo, Shanta Fitch, Ti Soriano and colleagues, with an educational karoline from [employer]. Review of Systems Const Denies poor appetite and Denies weakness Eyes Denies no additional complaints ENT Reports Normal hearing present, Denies dizziness, Denies nasal congestion, Denies tinnitus and Denies sore throat Card Denies chest pain, Denies syncope, Denies rapid heart rate and Denies dyspnea Resp Denies cough and Denies dyspnea GI Denies change in stool character, Reports constipation, Denies diarrhea, Denies nausea and Denies vomiting Denies urinary frequency, Denies difficulty voiding and Denies dysuria Neuro Reports Normal hearing present, Denies confusion, Denies dizziness, Denies syncope and Denies weakness Psych Denies confusion Physical exam (Primary Care) Vital Signs: Last Vital Signs Temp 98.1 F 09/13/25 16:07 Pulse 69 09/13/25 16:07 BP 140/80 H 09/13/25 16:31 Pulse Ox 98 09/13/25 16:07 Oxygen Delivery Method Room Air 09/13/25 16:07 BMI result Body Mass Index 28.9 Tobacco/Smoking Status: Tobacco use Status Tobacco use date assessed 12/29/24 09/13/25 16:08 Patient Tobacco Use Status Former Tobacco user 09/13/25 16:34 Tobacco use type Cigarette 09/13/25 16:34 e-Cigarette/Vaping Use Never Used 09/13/25 16:34 PHQ-9: PHQ-9 Score PHQ-9: Total score 5 09/13/25 16:28 Depression Screening Interpretation: Positive Thrive Assessment: Date of Thrive Assessment Date Thrive assessed 12/29/24 09/13/25 16:08 Currently or been in a relationship where the following occur: No concerns reported Const General: No confusion Orientation/consciousness: No confusion HENMT Head: Yes normocephalic Ears: external ears normal and TM's normal bilaterally Face and sinus: Yes normal facial exam Mouth: moist mucous membranes Throat: Yes tonsils normal Eyes Conjunctivae: conjunctivae normal Pupils: Equal, round and reactive pupils present and Pupil accommodation reflex normal Direct Ophthalmoscopy: normal light reflex Neck Neck: No lymphadenopathy Thyroid: Thyroid normal Chest Chest palpation & inspection: normal inspection of the chest Resp Effort & Inspection: normal respiratory effort and no audible wheezes Auscultation: clear to auscultation bilaterally, no crackles, no wheezes and lung sounds not diminished Cardio Rate: regular rate Rhythm: regular rhythm Peripheral pulses: radial pulses present and dorsalis pedis present GI Palpation (GI): no masses Auscultation: normal bowel sounds and normoactive bowel sounds Rectal Exam - Female: deferred Skin General skin exam: no rashes or lesions noted Rashes: no rashes Neuro General: No confusion Cranial nerves: Yes Equal, round and reactive pupils present and Yes Normal hearing present Cognition (Neuro): normal cognition Gait exam (Neuro): Normal gait present Motor exam (neuro): 5/5 motor strength present throughout Deep tendon reflexes (DTR's): Right brachioradialis reflex intensity grade: 2+, Left brachioradialis reflex intensity grade: 2+, Right patellar reflex intensity grade: 2+ and Left patellar reflex intensity grade: 2+ Extrem General: No edema Office Procedures Flu Questionnaire Does the patient have a severe egg allergy?: No Does the patient have severe life threatening allergies?: No Does the patient have a fever or illness today?: No Has the patient ever had Guillain-Anthony Syndrome?: No Has the patient ever had any past reaction to a flu shot?: No Immunizations Fluarix (PF) 45 mcg (15 mcg x 3)/0.5 mL IM syringe Performing Provider: Tomi Overton MD Performing Location: [facility] [place] [facility] Administered by: Luisa Shahid CMA on 09/13/25 16:50 Dose Route Admin Location Dispensed Lot Number Expiration Date ND Field Technical Support Consultant 0.5 mL IM Left Deltoid 0.5 mL [id number] 04/30/26 [id number] [employer] VIS Given Date VIS Provided VIS Publication Date 09/13/25 Single Vaccine 24 Eligibility Eligibility Date Funding Source Not [facility] Eligible 09/13/25 Private Coding Level of Care Code Est Pt Prev Care 40-64y(47665) Diagnoses Annual physical exam Z00.00 Family history of colon cancer in father Z80.0 Impaired glucose tolerance R73.02 Overweight (BMI 25.0-29.9) E66.3 Hypercholesterolemia E78.00 Anxiety and depression F41.9; F32.9 Additional Codes PHQ-9 - 07678 - PHQ-9 Billing: Yes ([id number]) Assessment & Plan Assessment & Plan (1) Annual physical exam: Code(s): Z00.00 - Encounter for general adult medical examination without abnormal findings Category: Medical Plan: Patient is advised to eat healthy, keep well hydrated, keep active and have adequate sleep. (2) Family history of colon cancer in father: Comment: father 40s, April 2023: Code(s): Z80.0 - Family history of malignant neoplasm of digestive organs Category: Medical Plan: Patient is up-to-date with colonoscopy April 2023 (3) Impaired glucose tolerance: Code(s): R73.02 - Impaired glucose tolerance (oral) Category: Medical Plan: Decrease the amount of carbohydrate intake, pasta, bread, rice and potatoes are all sugar and that is aside from all the sweet stuff, remember that fruits are good but they are Sweet also. (4) Overweight (BMI 25.0-29.9): Code(s): E66.3 - Overweight Category: Medical Plan: Diet and exercise (5) Hypercholesterolemia: Code(s): E78.00 - Pure hypercholesterolemia, unspecified Category: Medical Plan: Avoid fried foods, chicken skin, eggs, butter margarine, pastries and meat. Be it pork or beef they have a lot of cholesterol on rosuvastatin 10 mg once a day (6) Anxiety and depression: Comment: decline counselling (10/2020) Code(s): F41.9 - Anxiety disorder, unspecified; F32.9 - Major depressive disorder, single episode, unspecified Category: Medical Plan: Continue with present medication Orders: Orders Influenza [id number] Immunization Today Z23 - Encounter for immunization Medications: New blood pressure monitor (Blood Pressure Kit) As directed 1 ea 0RF I10 - Essential (primary) hypertension, R03.0 - Elevated blood-pressure reading, without diagnosis of hypertension
[2025-09-13 16:31] VITALS: BP 140/80
--- OUTSIDE RECORDS SUMMARY | 2025-09-13 18:45 | XMS_ITS | Patient Health Record ---
Author Organization [facility] Address [address] [place] [address] Care Team Providers Care Disease Intervention Specialist Name Role Phone Po Tomi CUBA Primary Care Provider Mich Caldera Jr [phone] Reason For Referral No Information Medications Medication [...] Status Risk Notes Problem Irritable bowel syndrome (10031788) Irritable bowel syndrome (564.1) Active confirmed Problem Colon cancer screening (532953824) Colon cancer screening (V76.51) Active confirmed Plan Of Treatment Future Test Test Name Order Date COLONOSCOPY 02/21/2015 Insurance Providers Payer Name Payer Address Payer Phone Subscriber Number Group Number Insured Name Patient Relationship to Insured Coverage Start Date Coverage End Date [facility] [address] [facility] [phone] [id number] DEION WATKINS Self - patient is the insured Medical (General) History Medical History History ICD Code colonoscopy 12-18-2009 abdominal discomfort migraines situational depression elevated cholesterol Surgical History Surgery Date(Month/Year) appendectomy dental extractions D&C
--- OUTSIDE RECORDS SUMMARY | 2025-09-13 18:45 | XMS_ITS | Clinical Summary ---
Author Organization [address] Address [address] [place] [id number] Phone Care Team Providers Care Computer Analyst Supervisor Name Role Phone No, Pcp (Do Not [...] this topic Meningococcal Vaccine Aged Out No hcris shun eligible based on patient's age to complete this topic Insurance COMM[employer]CIAL [employer]IC COMM[employer]CIAL [employer]IC COMM[employer]CIAL [employer]IC Care Teams Computer Analyst Supervisor Relationship Specialty Start Date End Date No, Pcp (Do Not Change Name) PCP - General 05/10/18
== END 2025-09-13 16:57 | disposition home or self-care (01) ==
LOC: HO.HMCH 16:06
PROVIDERS: PCP Internal Medicine; Visit Provider Internal Medicine
DX: Z00.00 Encounter for general adult medical examination without abnormal findings (principal); Z80.0 Family history of malignant neoplasm of digestive organs; R73.02 Impaired glucose tolerance (oral); E66.3 Overweight; E78.00 Pure hypercholesterolemia, unspecified; F41.9 Anxiety disorder, unspecified; F32.9 Major depressive disorder, single episode, unspecified; Z23 Encounter for immunization

== ENCOUNTER → 2025-09-13 16:05 | Outpatient (BNVA) | payer OTHER, SELFPAY | PROVIDERS: PCP Internal Medicine; Visit Provider Internal Medicine | DX: Z00.00 Encounter for general adult medical examination without abnormal findings (principal); E78.00 Pure hypercholesterolemia, unspecified; R03.0 Elevated blood-pressure reading, without diagnosis of hypertension; R73.03 Prediabetes; E66.3 Overweight; F41.9 Anxiety disorder, unspecified; F32.9 Major depressive disorder, single episode, unspecified; Z23 Encounter for immunization; Z80.0 Family history of malignant neoplasm of digestive organs; Z68.28 Body mass index [BMI] 28.0-28.9, adult | CPT/HCPCS: 90471; 90656; 96127 ==